=== PATIENT | female | born 1985 | race Caucasian/White ===

== ENCOUNTER 2017-03-07 10:07 | Inpatient (IN) ==
--- OUTSIDE RECORDS SUMMARY | 2017-03-07 10:15 | External Medical Summary | Continuity of Care Document ---
:1985 Author Organization [facility] Care Team Providers Name Role Phone [employer] Unavailable Unavailable Problems Problem Status Onset Classification Date Comments Source Date Reported Patient Resolved Problem 11/19/2013 Children&apo currently 0 s;s [facility]finding[facility] and Clinics Medications Medication Details Route Status Patient Ordering Order Source Instructions Provider Date hydroxyprogesterone 250 Active Children&a mg/mL, pos;s IM, [facility], and Refill(s) Clinics 0 1 tablet, Active Children&a Multivitamins with PO, pos;s Folic Acid 0.8 mg daily, [facility] oral tablet Refill(s) [facility] 0 and Clinics Vital Signs Vital Sign Value Date Comments Source Diastolic Blood 81 mm[Hg] 06/28/2013 [facility] Systolic Blood 114 mm[Hg] 06/28/2013 [facility] Temperature Celsius 36.6 [place] 06/28/2013 [facility] SpO2 96 % 06/28/2013 [facility] Respiratory Rate 16 BR/min 06/28/2013 [facility] Heart Rate 94 bpm 06/28/2013 [facility] Temperature Route Core/Temporal 06/28/2013 Children's
</ [facility] br>(06/28/19 and Clinics 14 15:36:00) <sup> </sup> Encounters Location Location Encounter Encounter Reason Attending ADM DC Status Source Details Type Number For Provider Date Date Visit [facility] Non [id number] 05/24 05/24 Active Children&a Billable /2012 pos;s [facility] CLI [id number] Genetic Josette 05/31 05/31 Active Children&a s/SW Jeffery /2013 pos;[facility] CLI [id number] PAT Torey 06/28 06/28 Active Children&a Linda /2013 pos;[facility] CLI [id number] Unknown 06/28 Active Children&a Provider pos;[facility] CLI [id number] Repeat Praveen 07/21 07/21 Active Children&a ECHO Drummond /2013 pos;[facility] Family History Value Date Source Advance Directives Order Name Results Value Date Source
--- OUTSIDE RECORDS SUMMARY | 2017-03-07 10:16 | External Medical Summary | Continuity of Care Document ---
:1985 Author Organization [facility] [employer] [facility] Address [address] [place], [place] [id number] Phone Allergies, Adverse Reactions, Alerts Substance Reaction Severity Status No Known Drug Allergies Unknown Active Medications Medication Instructions Dosage Effective Dates Status Comments (start - stop) [place] 250 mg/mL (1 inject 1 milliliter 250 MG - Active mL) intramuscular by intramuscular oil route every week begin between weeks 16 and 20; continue to week 37 of gestation or delivery Formula 28 take 1 tablet by Not Available - Active mg iron-800 mcg oral route every tablet day Problems Condition Effective Dates (start - stop) Clinical Status Suprvsn of preg w history of pre-term - labor, third trimester Suprvsn of preg w poor reprodctv or - obstet hx, third tri Supervision of other high risk - pregnancies, third trimester 29 weeks gestation of - Spotting complicating , - second trimester 16 weeks gestation of - Irregular Menses Suprvsn of preg w history of pre-term - labor, first trimester Supervision of other high risk - pregnancies, first trimester Preg care for patient w recurrent preg - loss, first trimester 9 weeks gestation of - Pap Smear Screening, Cervix - Suprvsn of preg w history of pre-term - labor, second tri Suprvsn of preg w history of pre-term - labor, second tri Supervision of other high risk - pregnancies, second trimester Suprvsn of preg w poor reprodctv or - obstet hx, second tri Fam hx of congen malform, deformations - and chromsoml abnlt Suprvsn of preg w history of pre-term - labor, second tri Suprvsn of preg w history of pre-term labor, second tri Suprvsn of preg w history of pre-term labor, second tri Suprvsn of preg w history of pre-term - labor, second tri Suprvsn of preg w history of pre-term - labor, third trimester Suprvsn of preg w history of pre-term - labor, third trimester Suprvsn of preg w history of pre-term - labor, third trimester Suprvsn of preg w poor reprodctv or - obstet hx, third tri 31 weeks gestation of - Preg care for patient w recurrent preg - loss, first trimester Hemorrhage in early , - unspecified 9 weeks gestation of - Supervision of other high risk - pregnancies, first trimester Suprvsn of preg w poor reprodctv or - obstet hx, first tri Hemorrhage in early , - unspecified 11 weeks gestation of - Supervision of other high risk - pregnancies, first trimester 11 weeks gestation of - Preg care for patient w recur preg - loss, second trimester Abnormal hematolog finding on - screening of mother 18 weeks gestation of - Fam hx of congen malform, deformations - and chromsoml abnlt Suprvsn of preg w poor reprodctv or - obstet hx, second tri Fam hx of congen malform, deformations - and chromsoml abnlt 18 weeks gestation of - 24 weeks gestation of - Fam hx of congen malform, deformations - and chromsoml abnlt Procedures Procedure Date Injection Administration Injectable Drug - Do Not Bill OB Visit No Charge Results Test Name Date and Time Measure Units Reference Range Abnormal Flag Comments Panel Description: Glucose [Mass/volume] in Serum or Plasma --1 hour post 50 g glucose PO GLUCOSE, 154 mg/dL <140 H One hour value of > GESTATIONAL SCREEN 11:05:00 lw=885 mg/dL indicatesthe (50G)-140 CUTOFF need for a diagnostic 75 g dose 2-hour or100 g dose 3-hour oral glucose tolerance test;patient fasting is required.Test performed at [email or web address] [address] [email or web address]: SID MICHAEL DO,MPH Panel Description: HEMOGLOBIN + HEMATOCRIT HEMOGLOBIN 11:05:00 11.5 g/dL 11.7-15.5 L HEMATOCRIT 11:05:00 33.9 % 35.0-45.0 L Test performed at [email or web address] [address] [address]Ybnqybje: SID MICHAEL DO,MPH Panel Description: Thyrotropin [Units/volume] in Serum or Plasma TSH 11:05:00 1.40 mIU/L N Reference Range > or=20 Years 0.40-4.50 Ranges First trimester 0.26-2.66 Second trimester 0.55-2.73 Third trimester 0.43-2.91Test performed at [email or web address] [address] [email or web address]: SID MICHAEL DO,MPH Advance Directives Directive Yes / No Effective Date File Name Unknown Encounters Encounter Practice Location Reason(s) Diagnoses Date Provider Care Team Description For Visit Members Associates Mike Garcia of preg w Sep-0 Rivera Referring In Womens history of 1-201 Aide. Provider: Health PA, pre-term labor, 7 700 Aide Rivera [address] Box [facility] , [address] 1522, trimesterSuprvsn [facility], of preg w tejal Mitchell, [place] [address] TATUM, reprodctv or 120, [place] 120, [id number], obstet hx, third Mike [place], [place] tri31 weeks RC TATUM, tel:+ gestation of [phone]. , [place]. tel: tel: [phone] Associates Mike Suprvsn of preg w Aug-2 Rivera Referring In Womens history of 5-201 Aide. Provider: Bud HUBBARD, pre-term labor, 7 700 Aide Rivera PO Box third trimester Medical K, [address], [place] [address], [facility] Dr TATUM, 120, [place] 120, , Mike [place], RC TATUM, tel: [phone]. , [place]. tel: tel: [phone] Associates Mike Suprvsn of preg w Aug-1 Rivera Referring In Womens history of 8-201 Aide. Provider: Bud HUBBARD, pre-term labor, 7 700 Aide Rivera PO Box third Medical K, 700 1522, trimesterSuprvsn [facility] [place], of preg w poor Dr, [facility] Dr TATUM, reprodctv or 120, [place] 120, , obstet hx, third Mike [place], triSupervision of RC, RC, tel: other high risk [phone] [id number]. pregnancies, , [place]. tel: third [id number] tel: [phone] weeks gestation [phone] of Associates Mike Suprvsn of preg w Aug-1 Rivera Referring In Womens history of 1-201 Aide. Provider: Bud HUBBARD, pre-term labor, 7 700 Aide Rivera PO Box third trimester Medical K, 700 1522, [place] [address], [facility] Dr TATUM, 120, Ty[place] 120, , Mike [place], RC TATUM, tel: [phone]. , [place]. tel: tel: [phone] Associates Mike Suprvsn of preg w Aug-0 Rivera Referring In Womens history of 2-201 Aide. Provider: Bud HUBBARD, pre-term labor, 7 700 Aide Rivera PO Box second tri Medical K, 700 1522, [place] [address], [facility] Dr TATUM, 120, [place] 120, , [place], [place], [facility], [place], tel: [phone]. , [place]. tel: tel: [phone] Associates Mike Nov-2 Rivera In Womens Aide. Health HAYDEE, 7 700 PO [address] Medical [address], Caitie Pinto, , [facility] RC, 120, , [place], [place], tel: [phone] , [place]. tel: [phone] [facility] Suprvsn of preg w Hild Referring In Womens history of Eve. Provider: Bud HUBBARD, pre-term labor, 7 2 E Eve Hild PO Box second tri Rajendra Smith, [address], [place], [place], [place], [place], [place], [place], [id number] [place], , , [place]. [id number]. [place] tel: tel: tel: [phone] Associates Mike Suprvsn of preg w [place] In Womens history of Festus. Health HAYDEE, pre-term labor, 7 700 PO Box second Medical 1522, triSupervision of [facility], other high risk Drive, [place], pregnancies, Suite , second 120, [place] trimesterSuprvsn Mike, tel: [place] [id number], obstet hx, second [place]. triFam hx of tel: congen malform, [id number] deformations and chromsoml abnlt Associates Mike 24 weeks Rivera In Womens Ultrasound gestation of Aide. Health HAYDEE, pregnancyFam hx 7 700 PO Box of [facility] 1522, malform, [facility], deformations and , [facility] RC, chromsoml abnlt 120, , [place], [place], tel: [phone] , [place]. tel: [phone] [facility] Suprvsn of preg w Nov-1 Hild Referring In Womens history of 4-201 Eve. Provider: Bud HUBBARD, pre-term labor, 7 [address] Eve Hild PO Box second tri Luis, Rajendra, [address], [place], Luis, [place], [place], [place], [place], [id number] [place], [id number], , [place]. [id number]. [place] tel: tel: tel: [phone] [facility] Suprvsn of preg w Nov-0 Hild Referring In Womens history of 7-201 Eve. Provider: Bud HUBBARD, pre-term labor, 7 [address] Eve Hild PO Box second tri Rajendra Smith, [address], [place], [place], [place], [place], [place], [id number] [place], [id number], , [place]. [id number]. [place] tel: tel: tel: [phone] [facility] Suprvsn of preg w [place]-2 Ana Maria Referring In Womens history of 0-201 Dorita. Provider: Bud HUBBARD, pre-term labor, 7 [address] Dorita PO Box second tri Ana Maria Smith L, 1522, [place], [address] [place], [place], [place], [id number] [place], [id number], , [place]. [place], [place] tel: [phone]. tel: [phone] tel:[phone] Associates Mike Suprvsn of preg w [place]-0 Rivera Referring In Womens poor reprodctv or 8-201 Aide. Provider: Health HAYDEE, obstet hx, second 7 700 Aide Rivrea PO Box triFam hx of Medical K, 700 1522, congen malform, [facility] Millie [facility] and [place] [address] [place] [address] TATUM, chromsoml [id number] 120, [place] 120, [id number], weeks gestation Mike [place], of RC TATUM, tel: [phone]. , [place]. tel: tel: [phone] Hong [place]ke[place] Preg care for [place]-0 Rivera In Womens Ultrasound patient w recur 8-201 Aide. Health PA, preg loss, second 7 700 PO Box trimesterAbnormal Medical 1522, hematolog finding Center [place], on Tyrel Mitchell, screening of 120, , [id number] weeks [place], gestation of [place], tel: pregnancyFam hx of congen , [place]. malform, tel: deformations and [phone] chromsoml abnlt Associates Mike Spotting May-2 Farshad In Womens complicating 3-201 Tad. 700 Health PA, , second 7 Medical PO Box weeks Center 1522, gestation of Tyrel Mitchell, 120, [place], [place], , [place], [place] tel: , [place]. tel: [phone] Hong [place] Supervision of Apr-2 Rivera In Womens other high risk 0-201 Aide. Health PA, pregnancies, 7 700 PO Box first Medical 1522, weeks gestation [facility], of Tyrel Mitchell, 120, , [place], [place], tel:901 , [place]. tel: [phone] Hong [place] Supervision of Apr-2 Rivera In Womens Ultrasound other high risk 0-201 Aide. Health PA, pregnancies, 7 700 PO Box first Medical 1522, trimesterSuprvsn Center [place], of preg w poor Tyrel Mitchell, reprodctv or 120, [id number], obstet hx, first [place], [place] triHemorrhage in [place], tel: early , [id number] , [place]. weeks gestation tel: of [phone] Hong [place] Preg care for Apr-0 Fleming In Womens patient w 6-201 Fiona. Health PA, recurrent preg 7 700 PO Box loss, first Medical 1522, trimesterHemorrha Center [place], ge in early Dr, Ty[place], , 120, [id number], unspecified9 [place], weeks gestation [place], tel: of , [place]. tel: [phone] Hong [place] Suprvsn of preg w Apr- Rivera In Womens history of 4-201 Aide. Health PA, pre-term labor, 7 700 PO Box first Medical 1522, trimesterSupervis Center [place], ion of other high , Tyrel TATUM, risk pregnancies, 120, [id number], first Mike, trimesterPreg [place], tel: care for patient w recurrent preg , [place]. loss, first tel: trimester9 weeks [phone] gestation of pregnancyPap Smear Screening, Cervix Associates Mike Irregular Menses Rivera In Womens 0-201 Aide. Health PA, 6 700 PO Box Medical 1522, [place] Dr Millie, Tyrel TATUM, 120, , [place], [place], tel:[phone] , [place]. tel: [phone] Hong [place] Nov-0 Rivera In Womens 7-201 Aide. Health PA, 3 700 PO Box Medical 1522, [place] Dr Millie, Tyrel TATUM, 120, , [facility] [place], tel:[phone] , [place]. tel: [phone] Family History Family Member Diagnosis Age At Onset No family history of Thrombosis Maternal Grandfather Diabetes mellitus No family history of Cardiovascular Disease No family history of Thyroid Disorder No family history of Ovarian Cancer No family history of Breast Cancer No family history of Uterine Cancer No family history of Stroke No family history of Hypertension No family history of Osteoporosis No family history of Colon Cancer Immunizations Vaccine Date Status Comments Tdap completed Source: New Immunization Record Payers Payer name Insurance type Covered republican ID Authorization(s) [employer] [place] [employer] Medicaid MC [id number] [employer] [place] [employer] MC [id number] Social History Type Description Quantity Date Captured Alcohol Use Details No Caffeine Use Details Unknown Tobacco Use Status Unknown Smoking Status Never smoker Vital Signs Date / Height Weight BMI Pulse Blood Temperature Respiratory Body Head BMI Time: Rate Pressure Rate Surface Circumference percentile Area 274.80 45.0 128/78 -2017 lbs 3 mm[Hg] 10:38 kg/m AM eter (2) 274.80 45.0 -2017 lbs 3 10:00 kg/m AM eter (2) 43.9 -2017 3 9:45 kg/m AM eter (2) Chief Complaint And Reason For Visit Unknown Chief Complaint And Reason For Visit Reason For Referral Reason For Referral Unknown Plan Of Care Date Type Action Status Appointment Heather Ca BOOKED Appointment Heather Ca BOOKED Appointment Heather Ca BOOKED Future Order: Radiology Order Nuchal Translucency ([id number]) Ordered Future Order: Radiology Order OB Detailed Complete Ultrasound Ordered ([id number]) Future Order: Radiology Order Ultrasound, OB Limited ([id number]) Ordered Date Type Problem Goal Intervention Status Start Date Unknown. History Of Present Illness Encounter Date Complaint History Of Present Illness This patient has no known history of present illness Functional Status Encounter Date Functional Assessment Cognitive Assessment Unknown Medications Administered Medication Instructions Dosage Effective Dates (start - stop) Status Comments Drug Treatment Unknown Instructions Date Instruction Additional Information gestational glucose lab screening HIV and other routine tests risk factors identified by history anticipated course of care nutrition and weight gain counseling, special diet toxoplasmosis precautions (cats / raw meat) sexual activity exercise indications for ultrasound influenza vaccine environmental / work hazards travel use of any medications (including supplements, vitamins, herbs, OTC drugs) domestic violence seat belt use childbirth classes / hospital facilities hospital registration genetic testing
--- OUTSIDE RECORDS SUMMARY | 2017-03-07 10:16 | External Medical Summary | Continuity of Care Document ---
:1985 Author Organization [facility] Address [address] [place], [place] [id number] Phone Allergies, Adverse Reactions, Alerts Substance Reaction Severity Status No Known Drug Allergies Unknown Active Medications Medication Instructions Dosage Effective Dates Status Comments (start - stop) [place] 250 mg/mL (1 inject 1 milliliter 250 [...] history of pre-term - labor, third trimester Spotting complicating , - second trimester 16 weeks gestation of - Irregular Menses Suprvsn of preg w history of pre-term - labor, first trimester Supervision of other high risk - pregnancies, first trimester 9 weeks gestation of - Pap Smear Screening, Cervix - Preg care for patient w recurrent preg - loss, first trimester Suprvsn of preg w history of pre-term - labor, second tri Suprvsn of preg w history of pre-term - labor, second tri Suprvsn of preg w poor reprodctv or - obstet hx, second tri Supervision of other high risk - pregnancies, second trimester Fam hx of congen malform, deformations - and chromsoml abnlt Suprvsn of preg w history of pre-term - labor, second tri Suprvsn of preg w poor reprodctv or - obstet hx, first tri 11 weeks gestation of - Supervision of other high risk - pregnancies, first trimester Hemorrhage in early , - unspecified Suprvsn of preg w poor reprodctv or - obstet hx, second tri 18 weeks gestation of - Fam hx of congen malform, deformations - and chromsoml abnlt Suprvsn of preg w history of pre-term - labor, second tri Suprvsn of preg w history of pre-term labor, second tri Suprvsn of preg w history of pre-term labor, second tri Suprvsn of preg w history of pre-term - labor, third trimester Supervision of other high risk - pregnancies, third trimester Suprvsn of preg w poor reprodctv or - obstet hx, third tri 29 weeks gestation of - Suprvsn of preg w history of pre-term - labor, third trimester Suprvsn of preg w history of pre-term - labor, third trimester Hemorrhage in early , - unspecified Preg care for patient w recurrent preg - loss, first trimester 9 weeks gestation of - Supervision of other high risk - pregnancies, first trimester 11 weeks gestation of - Preg care for patient w recur preg - loss, second trimester Abnormal hematolog finding on - screening of mother 18 weeks gestation of - Fam hx of congen malform, deformations - and chromsoml abnlt Fam hx of congen malform, deformations - and chromsoml abnlt 24 weeks gestation of - Procedures Procedure Date Injection Administration Injectable Drug - Do Not Bill Results Test Name Date and Time Measure Units Reference Range Abnormal Flag Comments Unknown Advance Directives Directive Yes / No Effective Date File Name Unknown Encounters Encounter Practice Location Reason(s) Diagnoses Date Provider Care Team Description For Visit Members [facility] Suprvsn of preg w Sep-0 Rivera Referring In Womens history of 1-201 Aide. Provider: Bud HUBBARD, pre-term labor, 7 700 Aide Rivera PO Box third trimester Medical K, [address], [place] [address], [facility] Dr TATUM, 120, Tyrel 120, [id number], Mike [place], [place], [place], tel: [phone]. , [place]. tel: tel: [phone] [facility] Suprvsn of preg w Dec-2 Rivera Referring In Womens history of 5-201 Aide. Provider: Bud HUBBARD, pre-term labor, 7 Aide Rivera PO Box third trimester Medical K, [address], [place] [address], [facility] Dr TATUM, 120, Tyrel 120, , Mike [place], [place], [place], tel:[phone]. , [place]. tel: tel: [phone] [facility] Suprpenelopen of preg w Dec- Rivera Referring In Womens history of 8-201 Aide. Provider: Bud HUBBARD, pre-term labor, 7 Aide Rivera PO Box third Medical K, 700 152, trimesterSupervis [facility] Millie, ion of other high , [facility] Dr TATUM, risk pregnancies, 120, Tyrel 120, , third Mike [place], trimesterSuprvsn [place], [place], tel: of preg w poor [phone]. reprodctv or , [place]. tel: obstet hx, third tel:53 [phone] weeks [phone] gestation of Associates [facility] Suprvsn of preg w Dec- Rivera Referring In Womens history of 1-201 Aide. Provider: Bud HUBBARD, pre-term labor, 7 700 Aide Rivera PO Box third trimester Medical K, [address], [place] [address], [facility] Dr TATUM, 120, Tyrel 120, , Mike [place], [place], tel: [phone]. , [place]. tel: tel: [phone] Hong [place] Suprvsn of preg w Dec-0 Rivera Referring In Womens history of 2-201 Aide. Provider: Health PA, pre-term labor, 7 700 Aide Rivera PO Box second [facility] Medical K, [address], [facility] Dr Millie, [facility] [place], 120, Tyrel 120, , Mike [place], [place], [place], tel: [phone]. , [place]. tel: tel: [phone] Hong [place] Rivera In Womens 7-201 Aide. Health PA, 7 700 PO Box Medical [address], [place] [address] Millie, [facility], 120, , [place], [facility], tel: [phone] , [place]. tel: [phone] Hong [facility] Nakul Suprvsn of preg w Hild Referring In Womens history of 1-201 Eve. Provider: Health HAYDEE, pre-term labor, [address] Hild PO Box second [facility] Rajendra Smith, [address], [address], [place], [place], [place], [id number] [place], , , [place]. [id number]. [place] tel: tel: tel: [phone] [facility] Suprvsn of preg w Sobbing In Womens history of 7- Festus. Health PA, pre-term labor, 7 700 PO Box second triSuprvsn Medical 1522, of preg w poor Center Millie, reprodctv or Drive, [place], obstet hx, second Suite , triSupervision of 120, [place] other high risk Mike, tel: pregnancies, [place], second [phone], trimesterFam hx [place]. of congen tel: malform, [phone] deformations and chromsoml abnlt [facility] Fam hx of congen Nov-1 Rivera In Womens Ultrasound malform, 7-201 Aide. Health PA, deformations and 7 700 PO Box chromsoml abnlt24 Medical 1522, weeks gestation Center [place], of Tyrel [place], 120, [id number], [place], [place], tel: [phone] , [place]. tel: [phone] [facility] Suprvsn of preg w Nov-1 Hild Referring In Womens history of 4-201 Eve. Provider: Health HAYDEE, pre-term labor, [address]ild PO Box second tri Rajendra Smith, [address], [place]into, [place]into, [place], [id number] [place], , , [place]. [id number]. [place] tel: tel: tel: [phone] [facility]0 Hild Referring In Womens history of 7-201 Eve. Provider: Bud HUBBARD, pre-term labor, 7 [address]ild PO Box second tri Rajendra Smith, [address], [place], [place] Pinto, [place], [id number] [place], , , [place]. [id number]. [place] tel: tel: tel: [phone] [facility] [place]-2 Ana Maria Referring In Womens history of 0-201 Dorita. Provider: Bud HUBBARD, pre-term labor, 7 [address] Dorita PO Box second tri Ana Maria Smith L, 1522, [place], [address] [place] [address], [place], [id number] [place], , , [place]. [place], [place] tel: [phone]. tel: [phone] tel: [phone] Hong [place] Suprvsn of preg w [place]-0 Rivera Referring In Womens poor reprodctv or 8-201 Aide. Provider: Health HAYDEE, obstet hx, second 7 700 Aide Rivera PO Box tri18 weeks Medical K, 700 1522, gestation of [facility], pregnancyFam hx , [facility] Dr TATUM, of congen 120, Tyrel 120, [id number], malform, [place], [place], [place] deformations and [place], [place], tel: chromsoml abnlt [phone]. , [place]. tel: tel: [phone] Hong Mckeon Preg care for Milan-0 Rivera In Womens Ultrasound patient w recur 8-201 Aide. Health PA, preg loss, second 7 700 PO Box trimesterAbnormal Medical 1522, hematolog finding [facility], on Tyrel Mitchell, screening of 120, , [id number] weeks [place], [place] gestation of [place], tel: pregnancyFam hx [phone] of [facility] , [place]. malform, tel: deformations and [phone] chromsoml abnlt Associates [facility] Spotting May-2 Farshad In Womens complicating 3-201 Tad. 700 Health PA, , second 7 Medical PO Box [email or web address] weeks [place] [address], gestation of [place]rel [place], 120, [place], [place], [id number], [place], [place] [id number] tel: , [place]. tel: [phone] Hong Mcke[place] Supervision of Apr-2 Rivera In Womens other high risk 0-201 Aide. Health HAYDEE, pregnancies, 7 700 PO Box first [id number] Medical 1522, weeks gestation [facility], of Tyrel Mitchell, 120, [id number], [place], [place], tel: [phone] , [place]. tel: [phone] Hong Mcke[place] Suprvsn of preg w Apr-2 Rivera In Womens Ultrasound poor reprodctv or 0-201 Aide. Health HAYDEE, obstet hx, first 7 700 PO Box tri11 weeks Medical 1522, gestation of [facility], pregnancySupervis Tyrel [place], ion of other high 120, [id number], risk pregnancies, [place], first [place], tel: trimesterHemorrha [phone] ge in early , [place]. , tel: unspecified [phone] Associates [facility] Hemorrhage in Aug-0 Fleming In Womens early , 6-201 Fiona. Health PA, unspecifiedPreg 7 700 PO Box care for patient Medical 1522, w recurrent preg [facility], [facility], first Tyrel Mitchell, trimester9 weeks 120, [id number], gestation of [place], [place], tel: [phone] , [place]. tel: [phone] Associates [facility] Suprvsn of preg w Aug- Rivera In Womens history of 4-201 Aide. Health PA, pre-term labor, 7 700 PO Box [facility] 1522, trimesterSupervis [place], ion of other high Tyrel Mitchell, risk pregnancies, 120, [id number], first trimester9 [place], [place] weeks gestation [place], tel: of pregnancyPap [phone] Smear Screening, , [place]. CervixPreg care tel: for patient w [phone] recurrent preg loss, first trimester Associates [facility] Irregular Menses Dec- Rivera In Womens 0-201 Aide. Health PA, 6 700 PO Box Medical [address], [place] [address] [place], 120, [id number], [place], [place], tel: [phone] , [place]. tel: [phone] Associates [facility] Nov-0 Rivera In Womens 7-201 Aide. Health PA, [address] [facility] 15[address], [place] [address] [place], 120, [id number], [place], [place], tel: [phone] , [place]. tel: [phone] Family History Family Member Diagnosis Age At [...] [employer] [place] [id number] [employer] [place] [id number] Social History Type Description Quantity Date Captured Alcohol Use Details No Caffeine Use Details Unknown Tobacco Use Status Unknown Smoking Status Never smoker Vital Signs Date / Height Weight BMI Pulse Blood Temperature Respiratory Body Head BMI Time: Rate Pressure Rate Surface Circumference percentile Area 43.9 120/78 2017 3 mm[Hg] 11:07 kg/m AM eter (2) Chief Complaint And Reason For Visit Unknown Chief Complaint And Reason For Visit Reason For Referral Reason For Referral Unknown Plan Of Care Date Type Action Status Appointment Heather Ca BOOKED Appointment Heather Ca BOOKED Appointment Heather Ca BOOKED Future Order: Radiology Order Nuchal Translucency ([id number]) Ordered Future Order: Radiology Order OB Detailed Complete Ultrasound Ordered ([id number]) Future Order: Radiology Order Ultrasound, OB Limited ([id number]) Ordered Date Type Problem Goal Intervention Status [...]
--- OUTSIDE RECORDS SUMMARY | 2017-03-07 10:16 | External Medical Summary | Continuity of Care Document ---
:1985 Author Organization [facility] Address [address] [place], [place] [id number] Phone Allergies, Adverse Reactions, Alerts Substance Reaction Severity Status No Known Drug Allergies Unknown Active Medications Medication Instructions Dosage Effective Dates Status Comments (start - stop) Justyna 250 mg/mL (1 inject 1 milliliter 250 [...] reprodctv or - obstet hx, third tri 33 weeks gestation of - Spotting complicating , - second trimester 16 weeks gestation of - Irregular Menses Suprvsn of preg w history of pre-term - labor, first trimester Supervision of other high risk - pregnancies, first trimester Preg care for patient w recurrent preg - loss, first trimester Pap Smear Screening, Cervix - 9 weeks gestation of - Suprvsn of preg [...] third trimester 29 weeks gestation of - Suprvsn of preg w history of pre-term - labor, third trimester Suprvsn of preg w history of pre-term - labor, third trimester Suprvsn of preg w poor reprodctv or - obstet hx, third tri 31 weeks gestation of - Suprvsn of preg w history of pre-term - labor, third trimester Suprvsn of preg w history of pre-term - labor, third trimester Suprvsn of preg w history of pre-term - labor, third trimester 33 weeks gestation of - Suprvsn of preg w poor reprodctv or - obstet hx, first tri Supervision of other high risk - pregnancies, first trimester Hemorrhage in early , - unspecified 11 weeks gestation of - Suprvsn of preg w poor reprodctv or - obstet hx, second tri 18 weeks gestation of - Fam hx of congen malform, deformations - and chromsoml abnlt Suprvsn of preg w poor reprodctv or - obstet hx, third tri Supervision of other high risk - pregnancies, third trimester 33 weeks gestation of - Preg care for patient w recurrent preg - loss, third trimester Suprvsn of preg w poor reprodctv or - obstet hx, third tri 35 weeks gestation of - Decreased movements, third - trimester, unsp Supervision of other high risk - pregnancies, third trimester Supervision of other high risk - pregnancies, first trimester 11 weeks gestation of - Hemorrhage in early , - unspecified Preg care for patient w recurrent preg - loss, first trimester 9 weeks gestation of - 18 weeks gestation of - Fam hx of congen malform, deformations - and chromsoml abnlt Abnormal hematolog finding on - screening of mother Preg care for patient w recur preg - loss, second trimester Fam hx of congen malform, deformations - and chromsoml abnlt 24 weeks gestation of - 35 weeks gestation of - Decreased movements, third - trimester, unsp Encounter For Screening For - Streptococcus B Supervision of other high risk - pregnancies, third trimester Procedures Procedure Date Injection Administration Injectable Drug - Do Not Bill OB Visit No Charge Results Test Name Date and Time Measure Units Reference Range Abnormal Flag Comments Unknown Advance Directives Directive Yes / No Effective Date File Name Unknown Encounters Encounter Practice Location Reason(s) Diagnoses Date Provider Care Team Description For Visit Members [facility] Suprvsn of preg w Feb- Rivera In Womens Ultrasound poor reprodctv or Aide. [facility] PA, obstet hx, third 7 700 PO Box tri35 weeks Medical 1522, gestation of [place], pregnancyDecrease Tyrel [place], d 120, [id number], movements, third Mike [place] trimester, [place], tel:[phone] unspSupervision [phone] of other high , [place]. risk pregnancies, tel:+[phone] third trimester [phone] Associates Mike 35 weeks Oct-0 Sobbing In Womens gestation of [employer] PA, pregnancyDecrease 7 700 PO Box d Medical 1522, movements, third Center [place], trimester, Drive, [place], unspEncounter For [address] [id number], 120, [place] Screening For [place], [place]: [place] [phone], other high risk [place]. pregnancies, tel: third trimester [phone] Associates [facility] Suprvsn of preg w Sep-2 Farshad Referring In Womens history of 1-201 Tad. 700 Provider: Health HAYDEE, pre-term labor, 7 Medical Tad PO Box third Center Farshad R, 1522, trimesterSuprvsn , [facility] 700 [place], of preg w poor 120, Medical [place], [facility] , [facility]x, third [place], Tryel 120, [place] tri33 weeks [id number] [place], tel: gestation of , [place]. [place], tel:[phone]. [id number] tel:[phone] Associates Mike Suprvsn of preg w Sep-2 Rivera In Womens Ultrasound poor reprodctv or 1-201 Aide. Health HAYDEE, obstet hx, third 7 700 PO Box triSupervision of Medical 1522, other high risk Center [place], pregnancies, Tyrel [place], third [id number] 120, [id number], weeks gestation [place], of pregnancyPreg [place], tel: care for patient w recurrent preg , [place]. loss, third tel: trimester [phone] Associates Mike Suprvsn of preg w Sep-1 Rivera Referring In Womens history of 5-201 Aide. Provider: Health HAYDEE, pre-term labor, 7 700 Aide Rivera PO Box third [email or web address] Medical K, 700 1522, weeks gestation Center [facility] [place], of , [facility] [place], 120, Tyrel 120, [id number], Mike [place], [place], [place], tel: [phone]. , [place]. tel: tel: [phone] Associates Mike Suprvsn of preg w Sep-1 Ana Maria Referring In Womens history of 1-201 Oly. Provider: Health HAYDEE, pre-term labor, 7 700 Aide Rivera PO Box third trimester Medical K, 700 1522, [place] [address], [facility] Dr TATUM, 120, Tyrel 120, [id number], Mike [place], RC [place], tel: [phone]. , [place]. tel: tel: [phone] Hong [place] Suprvsn of preg w Sep-0 Rivera Referring In Womens history of 1-201 Aide. Provider: Health HAYDEE, pre-term labor, 7 700 Aide Rivera PO Box third Medical , 700 1522, trimesterSuprn [facility], of preg w tejal [place], [facility] Dr TATUM, reprodctv or 120, Tyrel 120, [id number], obstet hx, third Mike [place], tri31 weeks RC TAT[place], tel: gestation of [phone]. , [place]. tel: tel: [phone] Hong [place] Suprvsn of preg w Aug-2 Rivera Referring In Womens history of 5-201 Aide. Provider: Bud HUBBARD, pre-term labor, 7 700 Aide Rivera PO Box third trimester Medical K, 700 1522, [place] [address], [facility] Dr TATUM, 120, Tyrel 120, [id number], Mike [place], RC T[place]UM, tel: [phone]. , [place]. tel: tel: [phone] Hong [place] Suprvsn of preg w Aug-1 Rivera Referring In Womens history of 8-201 Aide. Provider: Bud HUBBARD, pre-term labor, 7 700 Aide Rivera PO Box [facility] Medical , 700 1522, [facility], of preg w tejal [place], [facility] Dr TATUM, reprodctv or 120, Tyrel 120, [id number], obstet hx, third Mike [place], triSupervision of RC TATUM, tel: other high risk [phone]. pregnancies, , [place]. tel: third [email or web address] tel: [phone] weeks gestation [phone] of Associates Mike Suprvsn of preg w Dec- Rivera Referring In Womens history of 1-201 Aide. Provider: Health HAYDEE, pre-term labor, 7 700 Aide Rivera PO Box third trimester Medical K, 700 1522, [place] [address], [facility] [place], 120, Tyrel 120, , Mike [place], [place], [place], tel: [phone]. , [place]. tel: tel: [phone] Associates Mike Suprvsn of preg w Dec-0 Rivera Referring In Womens history of 2-201 Aide. Provider: Bud HUBBARD, pre-term labor, 7 700 Aide Rivera PO Box second tri Medical K, 700 1522, [place] [address], [facility] [place], 120, Tyrel 120, , Mike [place], [place], [place], tel: [phone]. , [place]. tel: tel: [phone] Associates Mike Nov- Rivera In Womens 7-201 Aide. Health HAYDEE, 7 700 PO Box Medical 1522, [place] Dr Millie, [facility] [place], 120, [id number], [place], [place], tel: [phone] , [place]. tel: [phone] Associates JULIANA Mota Suprvsn of preg w Nov-2 Hild Referring In Womens history of 1-201 Eve. Provider: Health HAYDEE, pre-term labor, 7 [address] Hild PO Box second tri Rajendra Smith, [address], [place] [address], [place], [place] Pinto, [id number] [place], , , [place]. [id number]. [place] tel: tel: tel: [phone] Associates Mike Suprvsn of preg w Nov-1 Sobbing In Womens history of 7-201 Festus. Health HAYDEE, pre-term labor, 7 700 PO Box second triSuprvsn Medical 1522, of preg w poor Center [place], reprodctv or Drive, [place], obstet hx, second Suite , triSupervision of 120, [place] other high risk [place], tel: [place], [phone] second [address], trimesterFam hx [place]. of congen tel: malform, [phone] deformations and chromsoml abnlt Associates [place] Fam hx of congen Nov-1 Rivera In Womens Ultrasound malform, 7-201 Aide. Health HAYDEE, deformations and 7 700 PO Box chromsoml [email or web address] Medical 1522, weeks gestation Center [place], of DrTyrel [place], 120, , [place], [place], tel: [phone] , [place]. tel: [phone] [facility] w Nov-1 Hild Referring In Womens history of 4-201 Eve. Provider: Bud HUBBARD, pre-term labor, 7 [address] Hild PO Box second tri Rajendra Smith, [address], [place] [address], [place], [place], [place], [place], [place], , , [place]. [id number]. [place] tel: tel: tel: [phone] [facility] Rio-0 Hild Referring In Womens history of 7-201 Eve. Provider: Bud HUBBARD, pre-term labor, 7 [address] Hild PO Box second tri Rajendra Smith, [address], [place] [address], [place], [place], [place], [id number] [place], , , [place]. [id number]. [place] tel: tel: tel: [phone] Associates [facility] Suprvsn of preg w Milan-2 Ana Maria Referring In Womens history of 0-201 Dorita. Provider: Bud HUBBARD, pre-term labor, 7 [address] Dorita PO Box second tri [place]Ana Maria L, 1522, [place], [address] [place], [place], [place], [place], [id number] [place], , , [place]. [place], tel: [phone]. tel: [phone] tel: [phone] Hong Hedrickn of preg w Milan-0 Rivera Referring In Womens poor reprodctv or 8-201 Aide. Provider: Bud HUBBARD, obstet hx, second 7 700 Aide Rivera PO Box tri18 weeks Medical K, 700 1522, gestation of [facility] [place], pregnancyAndrea lai Dr, [facility] Dr TATUM, of congen 120, Tyrel 120, [id number], malform, [place], [place], [place] deformations and [place], [place], tel: chromsoml abnlt [phone]. , [place]. tel: tel: [phone] Hong [place] 18 weeks Milan-0 Rivera In Womens Ultrasound gestation of 8-201 Aide. Bud HUBBARD, pregnancyFam hx 7 700 PO Box of [facility] Medical 1522, malform, [facility], deformations and Tyrel Mitchell, chromsoml 120, , abnltAbnormal [place], hematolog finding [place], tel: on [phone] screening of , [place]. motherPreg care tel: for patient w [phone] recur preg loss, second trimester Associates Mike Spotting May-2 Farshad In Womens complicating 3-201 Tad. 700 Health HAYDEE, , second 7 Medical PO Box [email or web address] weeks Center 1522, gestation of Tyrel [place], 120, [place], Mike, [id number], [place], [place] [id number] tel: , [place]. tel: [phone] Hong [place] Supervision of Apr-2 Rivera In Womens other high risk 0-201 Aide. Health HAYDEE, pregnancies, 7 700 PO Box first [email or web address] Medical 1522, weeks gestation [facility], of Tyrel Mitchell, 120, , [place], [place], tel: [phone] , [place]. tel: [phone] Associates Mike Suprvsn of preg w Apr-2 Rivera In Womens Ultrasound poor reprodctv or 0-201 Aide. Health HAYDEE, obstet hx, first 7 700 PO Box triSupervision of Medical 1522, other high risk Center [place], pregnancies, Tyrel [place], first 120, , trimesterHemorrha Mike, ge in early [place], tel: , [id number] , [place]. weeks gestation tel: of [phone] Associates Mike Hemorrhage in Apr-0 Fleming In Womens early , 6-201 Fiona. Health HAYDEE, unspecifiedPreg 7 700 PO Box care for patient Medical 1522, w recurrent preg [facility], loss, first Tyrel Mitchell, trimester9 weeks 120, , gestation of [place], [place], tel: [phone] , [place]. tel: [phone] Associates Mike Suprvsn of preg w Apr-0 Rivera In Womens history of 4-201 Aide. Health HAYDEE, pre-term labor, 7 700 PO Box first Medical 1522, trimesterSupervis [facility], ion of other high Tyrel Mitchell, risk pregnancies, 120, , first Mike, [place] trimesterPreg [place], tel: care for patient w recurrent preg , [place]. loss, first tel: trimesterPap [phone] Smear Screening, Cervix9 weeks gestation of Associates Mike Irregular Menses Aug- Rivera In Womens 0-201 Aide. Health HAYDEE, 6 700 PO Box Medical 1522, [place] [address] [place], 120, , [place], [place], tel:+ [phone] , [place]. tel: [phone] Associates Mike Nov-0 Rivera In Womens 7-201 Aide. Health HAYDEE, 3 700 PO Box Medical 1522, [place] [address] [place], 120, [id number], [facility] [place], tel:[phone] , . tel: [phone] Family History Family Member Diagnosis Age At [...] [employer] [place] [id number] [place] [place] Medicaid MC [id number] Social History Type Description Quantity Date Captured Alcohol Use Details No Caffeine Use Details Unknown Tobacco Use Status Unknown Smoking Status Never smoker Vital Signs Date / Height Weight BMI Pulse Blood Temperature Respiratory Body Head BMI Time: Rate Pressure Rate Surface Circumference percentile Area 285.40 46.7 lbs 7 3:50 kg/m PM eter (2) Chief Complaint And Reason For Visit Unknown Chief Complaint And Reason For Visit Reason For Referral Reason For Referral Unknown Plan Of Care Date Type Action Status Appointment Heather Ca BOOKED Future Order: Radiology Order Nuchal Translucency ([id number]) Ordered Future Order: Radiology Order Ultrasound OB Follow-up ([id number]) Ordered Future Order: Radiology Order Biophysical Profile without NST Ordered ([id number]) Future Order: Radiology Order OB Detailed Complete Ultrasound Ordered ([id number]) Future Order: Radiology Order Ultrasound, OB Limited ([id number]) Ordered Date Type Problem Goal Intervention Status [...]
--- OUTSIDE RECORDS SUMMARY | 2017-03-07 10:16 | External Medical Summary | Continuity of Care Document ---
:1985 Author Organization [facility] Address [address] [place], [place] [id number] Phone Allergies, Adverse Reactions, Alerts Substance Reaction Severity Status No Known Drug Allergies Unknown Active Medications Medication Instructions Dosage Effective Status Comments Dates (start - stop) [place] 250 mg/mL (1 inject 1 250 MG - Active mL) intramuscular milliliter by oil intramuscular route every week begin between weeks 16 and 20; continue to week 37 of gestation or delivery Formula 28 take 1 tablet by Not Available - Active mg iron-800 mcg oral route every tablet day cephalexin 500 mg take 1 capsule by 500 MG - No Longer capsule oral route 4 times Active every day for 7 days Problems Condition Effective Dates (start - stop) Clinical Status Spotting complicating , - second trimester 16 [...] congen malform, deformations - and chromsoml abnlt Supervision of other high risk - pregnancies, first trimester 11 weeks gestation of - Hemorrhage in early , - unspecified Preg care for patient w recurrent preg - loss, first trimester 9 weeks gestation of - Preg care for patient w recur preg - loss, second trimester Abnormal hematolog finding on - screening of mother 18 weeks gestation of - Fam hx of congen malform, deformations - and chromsoml abnlt Fam hx of congen malform, deformations - and chromsoml abnlt 24 weeks gestation of - Procedures Procedure Date Unknown Results Test Name Date and Time Measure Units Reference Range Abnormal Flag Comments Unknown Advance Directives Directive Yes / No Effective Date File Name Unknown Encounters Encounter Practice Location Reason(s) Diagnoses Date Provider Care Team Description For Visit Members Hong [place] Suprvsn of preg w Rivera Referring In Womens history of 1 Aide. Provider: Bud HUBBARD, pre-term labor, 7 Aide Rivera PO Box third trimester Medical K, 700 3787, [place] [address], [facility] [place], 120, [facility] 120, [id number], Mike [place], [place], [place], tel: [phone]. , [place]. tel: tel: [phone] Associates Mike Suprvsn of preg w Dec-0 Rivera Referring In Womens history of 2-201 Aide. Provider: Health PA, pre-term labor, 7 700 Aide Rivera PO Box second [facility] Medical K, 700 1522, [place] [address], [facility] [place], 120, Tyrel 120, , Mike [place], [place], [place], tel: [phone]. , [place]. tel: tel: [phone] Hong [place] Rivera In Womens 7-201 Aide. Health PA, 7 700 PO Box Medical 1522, [place] [address] Millie, [facility] [place], 120, , [place], [place], tel: [phone] , [place]. tel: [phone] Associates Peng Mota Suprvsn of preg w Hild Referring In Womens history of 1-201 Eve. Provider: Health HAYDEE, pre-term labor, 7 [address] Hild PO Box second [facility] Rajendra Smith, [address], [place] [address], [place], [place], [place], [id number] [place], , , [place]. [id number]. [place] tel: tel: tel: [phone] Associates Mike Suprvsn of preg w Sobbing In Womens history of 7- Festus. Health PA, pre-term labor, 7 700 PO Box second triSuprvsn Medical 1522, of preg w poor Center [place], reprodctv or Drive, [place], obstet hx, second Suite , triSupervision of 120, [place] other high risk [place], tel: [place], [place], second [phone], trimesterFam hx [place]. of congen tel: malform, [id number] deformations and chromsoml abnlt Associates Mike Fam hx of congen Nov-1 Rivera In Womens Ultrasound malform, 7-201 Aide. Health PA, deformations and 7 700 PO Box chromsoml [email or web address] Medical 1522, weeks gestation Center [place], of Tyrel [place], 120, [id number], [place], [place], tel:+ [phone] , [place]. tel: [phone] Associates [facility] Suprvsn of preg w Nov-1 Hild Referring In Womens history of 4-201 Eve. Provider: Health HAYDEE, pre-term labor, 7 [address] Hild PO Box second tri Rajendra Smith, [address], [place] [address], [place], [place], [place], [place], [id number] [place], , , [place]. [id number]. [place] tel: tel: tel: [phone] [facility]0 Hild Referring In Womens history of 7-201 Eve. Provider: Bud HUBBARD, pre-term labor, 7 [address] Hild PO Box second tri Rajendra Smith, [address], [place] [address], [place], [place], [place] Pinto, [id number] [place], , , [place]. [id number]. [place] tel: tel: tel: [phone] [facility] preg w Milan-2 Ana Maria Referring In Womens history of 0-201 Dorita. Provider: Bud HUBBARD, pre-term labor, 7 [address] Dorita PO Box second tri Ana Maria Smith L, 1522, [place], [address] [place], [place], [place] Smith, [id number] [place], , , [place]. [place], [place] tel: [phone]. tel: [phone] tel: [phone] Hong Beanvsn of preg w Milan-0 Rivera Referring In Womens poor reprodctv or 8-201 Aide. Provider: Health HAYDEE, obstet hx, second 7 700 Aide Rivera PO Box tri18 weeks Medical K, 700 1522, gestation of [facility] [place], pregnancyFam hx , [facility] Dr TATUM, of congen 120, Tyrel 120, [id number], malform, [place], [place], [place] deformations and [place], [place], tel: chromsoml abnlt [phone]. , [place]. tel: tel: [phone] Hong [place] Preg care for Milan-0 Rivera In Womens Ultrasound patient w recur 8-201 Aide. Health PA, preg loss, second 7 700 PO Box trimesterAbnormal Medical 1522, hematolog finding [facility], on Tyrel Mitchell, screening of 120, , [id number] weeks [place], [place] gestation of [place], tel: pregnancyFam hx [phone] of [facility] , [place]. malform, tel: deformations and [phone] chromsoml abnlt Associates Mike Spotting May-2 Farshad In Womens complicating 3-201 Tad. 700 Health PA, , second 7 Medical PO Box [id number] weeks [place] 1522, gestation of Tyrel [place], 120, [place], [place], [id number], [place], [place] [id number] tel: , [place]. tel: [phone] Hong [place] Supervision of Apr-2 Rivera In Womens other high risk 0-201 Aide. Health HAYDEE, pregnancies, 7 700 PO Box first [id number] Medical 1522, weeks gestation [facility], of Tyrel Mitchell, 120, [id number], [place], [place], tel: [phone] , [place]. tel: [phone] Hong [place] Suprvsn of preg w Apr-2 Rivera In Womens Ultrasound poor reprodctv or 0-201 Aide. Health HAYDEE, obstet hx, first 7 700 PO Box triSupervision of Medical 1522, other high risk Center [place], pregnancies, Tyrel Mitchell, first 120, , trimesterHemorrha [place], [place] ge in early [place], tel: , [id number] , [place]. weeks gestation tel: of [phone] Associates Mike Hemorrhage in Aug-0 Fleming In Womens early , 6-201 Fiona. Health PA, unspecifiedPreg 7 700 PO Box care for patient Medical 1522, w recurrent preg [facility], loss, first Tyrel Mitchell, trimester9 weeks 120, , gestation of [place], [place], tel:[phone] , [place]. tel: [phone] Associates Mike Suprvsn of preg w Aug- Rivera In Womens history of 4-201 Aide. Health PA, pre-term labor, 7 700 PO Box [facility] 1522, trimesterSupervis [place], ion of other high Tyrel Mitchell, risk pregnancies, 120, , first [place], trimesterPreg [place], tel: care for patient w recurrent preg , [place]. loss, first tel: trimester9 weeks [phone] gestation of pregnancyPap Smear Screening, Cervix Associates Mike Irregular Menses Rivera In Womens 0-201 Aide. Health HAYDEE, 6 700 PO Box Medical 1522, [place] [address] [place], 120, [id number], [place], [place], tel: [phone] , [place]. tel: [phone] Associates Mike Nov-0 Rivera In Womens 7-201 Aide. Health PA, 3 700 PO Box [facility] 1522, [place] [address] [place], 120, , [place], [place], tel: [phone] , [place]. tel: [phone] Family History Family Member Diagnosis Age At [...] Colon Cancer Immunizations Vaccine Date Status Comments Unknown Payers Payer name Insurance type Covered constitution party ID Authorization(s) [employer] [place] - Medicaid MC [id number] Social History Type Description Quantity Date Captured Unknown Vital Signs Date / Height Weight BMI Pulse Blood Temperature Respiratory Body Head BMI Time: Rate Pressure Rate Surface Circumference percentile Area Unknown Chief Complaint And Reason For Visit Unknown Chief Complaint And Reason For Visit Reason For Referral Reason For Referral Unknown Plan Of Care Date Type Action Status Appointment Heather Ca BOOKED Future Order: Radiology Order Nuchal Translucency ([id number]) Ordered Future Order: Radiology Order OB Detailed Complete Ultrasound Ordered ([id number]) Future Order: Radiology Order Ultrasound, OB Limited ([id number]) Ordered Date Type Problem Goal Intervention Status Start Date Unknown. History Of Present Illness Encounter Date Complaint History Of Present Illness This patient has no known history of present illness Functional Status Encounter Date Functional Assessment Cognitive Assessment Unknown Medications Administered Medication Instructions Dosage Effective Dates (start - stop) Status Comments Drug Treatment Unknown Instructions Date Instruction Additional Information HIV and other routine tests risk factors [...]
--- OUTSIDE RECORDS SUMMARY | 2017-03-07 10:16 | External Medical Summary | Continuity of Care Document ---
:1985 Author Organization [facility] Address [address] [place], [place] [id number] Phone Allergies, Adverse Reactions, Alerts Substance Reaction Severity Status No Known Drug Allergies Unknown Active Medications Medication Instructions Dosage Effective Dates Status Comments (start - stop) [place] 250 mg/mL (1 inject 1 milliliter 250 [...] third trimester 33 weeks gestation of - Spotting complicating , - second trimester 16 weeks gestation of - Irregular Menses Suprvsn of preg w history of pre-term - labor, first trimester Supervision of other high risk - pregnancies, first trimester Pap Smear Screening, Cervix - Preg care for patient w recurrent preg - loss, first trimester 9 weeks gestation of - Suprvsn of preg w history of pre-term - labor, second tri Suprvsn of preg w history of pre-term - labor, second tri Suprvsn of preg w poor reprodctv or - obstet hx, second tri Fam hx of congen malform, deformations - and chromsoml abnlt Supervision of other high risk - pregnancies, second trimester Suprvsn of preg w history of [...] third tri 33 weeks gestation of - Suprvsn of preg w history of pre-term - labor, third trimester Suprvsn of preg w poor reprodctv or - obstet hx, third tri 29 weeks gestation of - Supervision of other high risk - pregnancies, third trimester Suprvsn of preg w history [...] third tri 33 weeks gestation of - Supervision of other high risk - pregnancies, third trimester Preg care for patient w recurrent [...] first trimester 9 weeks gestation of - Fam hx of congen malform, deformations - and chromsoml abnlt 18 weeks gestation of - Preg care for patient w recur preg - loss, second trimester Abnormal hematolog finding on - screening of mother Fam hx of congen malform, deformations - and chromsoml abnlt 24 weeks gestation of - 35 weeks gestation of - Supervision of other high risk - pregnancies, third trimester Decreased movements, third - trimester, unsp Encounter For Screening For - Streptococcus B Procedures Procedure Date Injection Administration Injectable Drug [...] In Womens Ultrasound poor reprodctv or Aide. qualifyor PA, obstet hx, third 7 700 [address] Box tri35 weeks Medical 1522, gestation of [place] Millie pregnancyDecrease , [place], d 120, [id number], movements, third Mike, [place] trimester, [place], tel:[phone] unspSupervision [phone] of other high , [place]. risk pregnancies, tel:[phone] third trimester [phone] Associates Mike 35 weeks Oct-0 Sobbing In Womens gestation of qualifyor PA, pregnancySupervis 7 700 PO Box ion of other high Medical 1522, risk pregnancies, [facility], third Drive, [place], trimesterDecrease [id number], d 120, [place] movements, third [place], tel: trimester, [place] [address], [place]. Screening For tel: Streptococcus B [phone] Associates Mike Suprvsn of preg w Sep-2 Farshad Referring In Womens history of 1-201 Tad. 700 Provider: Health HAYDEE, pre-term labor, 7 Medical Tad PO Box third Center Farshad R, 1522, trimesterSuprvsn , [address], of preg w poor 120, Medical [place], [facility] , obstet hx, third [place], [place] 120, [place] tri33 weeks [place], tel: gestation of , [place]. [place], tel:[phone]. [phone] tel:[phone] Hong [place] Suprvsn of preg w Sep-2 Rivera In Womens Ultrasound poor reprodctv or 1-201 Aide. Health HAYDEE, obstet hx, third 7 700 PO Box tri33 weeks Medical 1522, gestation of [facility], pregnancySupervis , [facility], ion of other high 120, [id number], risk pregnancies, [place], third [place], tel: trimesterPreg care for patient , [place]. w recurrent preg tel: loss, third [phone] trimester Associates Mike Suprvsn of preg w Sep-1 Rivera Referring In Womens history of 5-201 Aide. Provider: Health HAYDEE, pre-term labor, 7 700 Aide Rivera PO Box third Medical K, 700 1522, weeks gestation Center [facility] [place], of , [facility] [place], 120, [place] 120, [id number], Mike [place], [place], [place], tel: [phone]. , [place]. tel: tel: [phone] Associates Mike Suprvsn of preg w Sep-1 Ana Maria Referring In Womens history of 1-201 Oly. Provider: Health HAYDEE, pre-term labor, 7 700 Aide Rivera PO Box third trimester Medical K, 700 1522, [place] [address], [facility] Dr TATUM, 120, [place] 120, [id number], Mike [place], [facility], [place], tel: [phone]. , [place]. tel: tel: [phone] Hong [place] Suprvsn of preg w Sep-0 Rivera Referring In Womens history of 1-201 Aide. Provider: Health HAYDEE, pre-term labor, 7 700 Aide Rivera PO Box third Medical , 700 1522, trimesterSuprvsn [facility], of preg w tejal Mitchell, [facility] Dr TATUM, reprodctv or 120, [place] 120, [id number], obstet hx, third Mike [place], tri31 weeks [place], [place], tel: gestation of [phone]. , [place]. tel: tel: [phone] Hong [place] Suprvsn of preg w Aug-2 Rivera Referring In Womens history of 5-201 Aide. Provider: Health HAYDEE, pre-term labor, 7 700 Aide Rivera PO Box third trimester Medical K, 700 1522, [place] [address], [facility] Dr [place]ATUM, 120, [place] 120, [id number], Mike [place], [place], [place], tel: [phone]. , [place]. tel: tel: [phone] Hong [place] Suprvsn of preg w Aug-1 Rivera Referring In Womens history of 8-201 Aide. Provider: Health PA, pre-term labor, 7 700 Aide Rivera PO Box third Medical , 700 1522, trimesterSuprvsn [facility], of preg w tejal Mitchell, [facility] Dr TATUM, reprodctv or 120, [place] 120, [id number], obstet hx, third Mike [place], tri29 weeks [place], tel: gestation of [phone]. pregnancySupervis , [place]. tel: ion of other high tel: [phone] risk pregnancies, [id number] third trimester Associates Mike Suprvsn of preg w Rivera Referring In Womens history of 1-201 Aide. Provider: Health HAYDEE, pre-term labor, 7 700 Aide Rivera PO Box third trimester Medical K, 700 1522, [place] [address], [facility] [place], 120, [place] 120, , Mike [place], [place], [place], tel: [phone]. , [place]. tel: tel: [phone] Associates Mike Suprvsn of preg w Dec-0 Rivera Referring In Womens history of 2-201 Aide. Provider: Bud HUBBARD, pre-term labor, 7 700 Aide Rivera PO Box second tri Medical K, 700 1522, [place] [address], [facility] [place], 120, [place] 120, , Mike [place], [place], [place], tel: [phone]. , [place]. tel: tel: [phone] Associates Mike Rivera In Womens 7-201 Aide. Health HAYDEE, 7 700 PO Box Medical 1522, [place] Dr Millie, [facility] [place], 120, [id number], [place], [place], tel: [phone] , [place]. tel: [phone] Associates JULIANA Mota Suprvsn of preg w Nov- Hild Referring In Womens history of 1-201 Eve. Provider: Health HAYDEE, pre-term labor, 7 [address] Hild PO Box second tri Rajendra Smith, [address], [place] [address], [place], [place] Pinto, [id number] [place], , , [place]. [id number]. [place] tel: tel: tel: [phone] Associates Mike Suprvsn of preg w Rio-1 Sobbing In Womens history of 7-201 Festus. Health HAYDEE, pre-term labor, 7 700 PO Box second triSuprvsn Medical 1522, of preg w poor Center [place], reprodctv or Drive, [place], obstet hx, second Suite , triFam hx of 120, [place] congen malform, [place], tel: deformations and [place], chromsoml [phone], abnltSupervision [place]. of other high tel: risk pregnancies, [phone] second trimester Associates Mike Fam hx of congen Nov-1 Rivera In Womens Ultrasound malform, 7-201 Aide. Health PA, deformations and 7 700 PO Box chromsoml [email or web address] Medical 1522, weeks gestation Center [place], of Dr[place], 120, [id number], [place], [place], tel: [phone] , [place]. tel: [phone] [facility] Nakul Beandarek of preg w Nov-1 Hild Referring In Womens history of 4-201 Eve. Provider: Bud HUBBARD, pre-term labor, 7 [address] Hild PO Box second tri Rajendra Smith, [address], [place] [address], [place], [place], [place], [place], [place], , , [place]. [id number]. [place] tel: tel: tel: [phone] [facility] [place] of preg w Nov-0 Hild Referring In Womens history of 7-201 Eve. Provider: Bud HUBBARD, pre-term labor, 7 [address] PO Box second tri Rajendra Smith, [address], [place], [place], [place], [place], [id number] [place], , , [place]. [id number]. [place] tel: tel: tel: [phone] [facility] Suprvsn of preg w [place]-2 Ana Maria Referring In Womens history of 0-201 Dorita. Provider: Bud HUBBARD, pre-term labor, 7 2 E Dorita PO Box second tri LuisAna Maria L, 1522, [place], [address] [place], [place], Luis, [place], [id number] [place], , , [place]. [place], [place] tel: [phone]. tel: [phone] tel: [phone] Hong Beanvsn of preg w Milan-0 Rivera Referring In Womens poor reprodctv or 8-201 Aide. Provider: Health HAYDEE, obstet hx, second 7 700 Aide Rivera PO Box tri18 weeks Medical K, 700 1522, gestation of [facility] [place], pregnancyFam hx , [facility] Dr TATUM, of congen 120, [place] 120, , malform, [place], [place], [place] deformations and [place], [place], tel: chromsoml abnlt [phone]. , [place]. tel: tel: [phone] Hong [place] Fam hx of congen Milan-0 Rivera In Womens Ultrasound malform, 8-201 Aide. Health HAYDEE, deformations and 7 700 PO Box chromsoml [id number] Medical 1522, weeks gestation [place], of pregnancyPreg [place], care for patient 120, [id number], w recur preg [place], [place] loss, second [place], tel: trimesterAbnormal [phone] hematolog finding , [place]. on tel: screening of [phone] mother Associates Mike Spotting May-2 Farshad In Womens complicating 3-201 Tad. 700 Health HAYDEE, , second 7 Medical PO Box [email or web address] weeks Center 1522, gestation of [place], 120, [place], [place], , [place], [place] [id number] tel: , [place]. tel: [phone] Hong [place] Supervision of Apr-2 Rivera In Womens other high risk 0-201 Aide. Health HAYDEE, pregnancies, 7 700 PO Box first [id number] Medical 1522, [facility], of [place] Mitchell, 120, [id number], [place], [place], tel: [phone] , [place]. tel: [phone] Associates Mike Suprvsn of preg w Apr-2 Rivera In Womens Ultrasound poor reprodctv or 0-201 Aide. Health HAYDEE, obstet hx, first 7 700 PO Box triSupervision of Medical 1522, other high risk Center [place], pregnancies, [place] Mitchell, first 120, [id number], trimesterHemorrha [place], ge in early [place], tel: , [phone] [email or web address] , [place]. weeks gestation tel: of [phone] Associates Mike Hemorrhage in Apr-0 Fleming In Womens early , 6-201 Fiona. Health HAYDEE, unspecifiedPreg 7 700 PO Box care for patient Medical 1522, w recurrent preg Center [place], loss, first [place] Mitchell, trimester9 weeks 120, [id number], gestation of [place], [place], tel:[phone] , [place]. tel: [phone] Associates Mike Suprvsn of preg w Apr-0 Rivera In Womens history of 4-201 Aide. Bud HUBBARD, pre-term labor, 7 700 PO Box first Medical 1522, trimesterSupervis [facility], ion of other high [place]rel Mitchell, risk pregnancies, 120, [id number], first [place], trimesterPap [place], tel: Smear Screening, CervixPreg [facility] , [place]. for patient w tel: recurrent preg [phone] loss, first trimester9 weeks gestation of Associates Mike Irregular Menses Aug- Rivera In Womens 0-201 Aide. Bud HUBBARD, 6 700 PO Box Medical 1522, [place] [address] [place], 120, [id number], [place], [place], tel: [phone] , [place]. tel: [phone] Associates Mike Nov-0 Rivera In Womens 7-201 Aide. Health HAYDEE, 3 700 PO Box Medical 1522, [place], Ty[place] Mitchell, 120, [id number], [place], [place], tel:[phone] [phone] , [place]. tel:[phone] Family History Family Member Diagnosis Age At [...] Record Payers Payer name Insurance type Covered democrat ID Authorization(s) [employer] [place] - Medicaid MC [id number] [employer] [place] Medicaid MC [id number] Social History Type Description Quantity Date Captured Alcohol Use Details No Caffeine Use Details Unknown Tobacco Use Status Unknown Smoking Status Never smoker Vital Signs Date / Height Weight BMI Pulse Blood Temperature Respiratory Body Head BMI Time: Rate Pressure Rate Surface Circumference percentile Area 283.00 46.3 132/78 lbs 7 mm[Hg] 9:08 kg/m AM eter (2) Chief Complaint And Reason For Visit Unknown Chief Complaint And Reason For Visit Reason For Referral Reason For Referral Unknown Plan Of Care Date Type Action Status Appointment Heather Ca BOOKED Appointment Heather Ca BOOKED Future Order: Radiology Order Nuchal Translucency ([id number]) Ordered Future Order: Radiology Order Ultrasound OB Follow-up ([id number]) Ordered Future Order: Radiology Order Biophysical Profile without NST Ordered ([id number]) Future Order: Radiology Order OB Detailed Complete Ultrasound Ordered ([id number]) Future Order: Radiology Order Ultrasound, OB Limited ([id number]) Ordered Date Type Problem Goal Intervention Status [...]
--- OUTSIDE RECORDS SUMMARY | 2017-03-07 10:16 | External Medical Summary | Referral Summary ---
:1985 Author Organization [facility] Address [address] [place] [address] Care Team Providers Name Role Phone Aide Rivera Primary Care Physician Encounter [facility] [id number] Date(s): 01/05/16 - 01/05/16 [facility] [address] [place] [address] [place] Discharge Diagnosis: Threatened miscarriage Discharge Disposition: 01-Home or Self Care Attending Physician: Kevin House MD Admitting Physician: Kevin House MD Vital Signs Most recent to oldest [Reference Range]: 1 Temperature Oral [35.8-37.3 degC] 36.8 degC (01/05/16 7:27 PM) Peripheral Pulse Rate [60-100 bpm] 88 bpm (01/05/16 7:27 PM) Respiratory Rate [14-20 br/min] 16 br/min (01/05/16 7:27 PM) Blood Pressure [90-140/60-90 mmHg] 144/90 mmHg *HI* (01/05/16 7:27 PM) SpO2 99 % (01/05/16 7:27 PM) Problem List No Known Problems Allergies, Adverse Reactions, Alerts No Known Allergies Medications No data available for this section Results Chemistry Most recent to oldest [Reference Range]: 1 Sodium Venous [136-144 mEq/L] 142 mEq/L (01/05/16 5:48 PM) Potassium Venous [3.6-5.1 mEq/L] 3.8 mEq/L 1 (01/05/16 5:48 PM) Calcium Ionized Venous [1.19-1.41 mmol/L] 1.22 mmol/L (01/05/16 5:48 PM) Total CO2 Venous [25-29 mEq/L] 23 mEq/L *LOW* (01/05/16 5:48 PM) HGB Venous NPT [12.0-16.0 gm/dL] 13.6 gm/dL (01/05/16 5:48 PM) HCT Venous [37.0-47.0 %] 40.0 % (01/05/16 5:48 PM) Glucose Venous [70-100 mg/dL] 99 mg/dL (01/05/16 5:48 PM) BUN Venous [4-20] 10 (01/05/16 5:48 PM) Creatinine Venous [0.4-1.0 mg/dL] 0.7 mg/dL (01/05/16 5:48 PM) Venous CL [99-109 mEq/L] 103 mEq/L (01/05/16 5:48 PM) Anion Gap, Alfonso [3-20] 16 (01/05/16 5:48 PM) Screen, Urine NPT Positive *ABN* (01/05/16 4:58 PM) Beta hCG Qnt 118 mIU/mL 2 (01/05/16 5:37 PM) 1Result Comment: This test was performed on a whole blood specimen. The presence or absence of hemolysis cannot be assessed. Hemolysis can falsely elevate potassium levels. Normals are for venous specimens only.2Result Comment: Normal Ranges for Quantitative Beta-HCG are as follows: Non- Females: 0 - 5 Gestation Wks 95% Range 0.2 - 1 4 - 50 1 - 2 50 - 500 2 - 3 100 - 5000 3 - 4 500 - 10,000 4 - 5 1,000 - 50,000 5 - 6 10,000 - 100,000 6 - 8 15,000 - 200,000 8 - 12 10,000 - 100,000Microbiology Reports TEST:Affirm Vaginitis Panel STATUS:Auth (Verified) BODY SITE: SOURCE:Cervix/Vaginal COLLECTED DATE/TIME:01/05/16 5:55 PMAffirm Vaginitis PanelNegative for Trichomonas vaginalis Negative for Gardnerella vaginalis Negative for Henna species Immunizations No data available for this section Procedures No data available for this section Social History Social History Type Response Smoking Status Never smoker Assessment and Plan No data available for this section
--- OUTSIDE RECORDS SUMMARY | 2017-03-07 10:17 | External Medical Summary | Summary of Care ---
:1985 Author Name Juana Valero M.D. Address [address], [place] [id number] Care Team Providers Name Role Phone Juana Valero M.D. Unavailable Unavailable Praveen Valero Primary Care Provider Unavailable Unavailable Unavailable Unavailable Functional Status Functional Status Health Issues Name Dates Details Functional status health issues are not documented Status: Cognitive Status Health Issues Name Dates Details Cognitive status health issues are not documented Status: Problems Name Dates Details History of Supervision of normal first (V22.0, Z34.00) Status: Resolved History of Supervision of normal (V22.1, Z34.90) Status: Resolved Right shoulder tendonitis (726.10, M75.81) Status: Active Encounter for pre-employment examination (V70.5, Z02.1) Status: Active Low back ache (724.2, M54.5) Status: Active Sciatica (724.3, M54.30) Status: Active Cough (786.2, R05) Status: Active Medications Name Dates Details Ibuprofen 600 MG Oral Tablet TAKE 1 TABLET 3 TIMES DAILY NEEDED. Quantity: 30 Refills: 0 Praveen Valero M.D. Started 03-Jan-2014 ActivePredniSONE 10 MG Oral Tablet 3 tablets x 3 days, 2 tablets x 3 days, then 1 tablet qd x 3 days. Quantity: 18 Refills: 0 Praveen Valero M.D. Started 14-Jul-2015 ActivePromethazine-Codeine 6.25-10 MG/5ML Oral Syrup Take 1 tsp every 6 hours Quantity: 240 Refills: 0 Praveen Valero M.D. Started 14-Jul-2015 Active Allergies and Adverse Reactions Name Dates Details No Known Drug Allergies Status: Active Past Medical History Name Dates Details History of Bleeding During First Trimester Status: Resolved History of Dysuria (788.1, R30.0) Status: Resolved History of Screening examination for venereal disease (V74.5, Z11.3) Status : Resolved History of Supervision of normal first (V22.0, Z34.00) Status: Resolved History of Supervision of normal (V22.1, Z34.90) Status: Resolved History of Urinary Tract Infection (V13.02) Status: Resolved Procedures Procedure Dates Details History of Treatment Of Femoral Fracture Procedures not documented Immunization Name Dates Details Immunizations not documented Family History Mother Name Dates Details No pertinent family history Status: Active Father Name Dates Details No pertinent family history Status: Active Social History Name Dates Details Smoking StatusNever smoker Vital Signs Date Test Result Details 14-Jul-2015 11:11 BP Systolic 130 mm[Hg] Status: BP Diastolic 72 mm[Hg] Status: Temperature 97.9 f Status: Weight 270 lb Status: Body Mass Index Calculated 42.29 kg/m2 Status: Body Surface Area Calculated 2.3 m2 Status: Results Date Description Value Details Results not documented Plan of Care Planned Observations Name Dates Details Planned Goals not documented Goal Instructions Instructions not documented Encounters Appointment; Praveen Valero On 14-Jul-2015 Encounter Diagnosis: Problem not documented 10:45 Appointment; Sandor Velez On 29-Jun-2014 Encounter Diagnosis: Problem not documented 10:00 Appointment; Praveen Valero On 03-Jan-2014 Encounter Diagnosis: Problem not documented 15:15
--- OUTSIDE RECORDS SUMMARY | 2017-03-07 10:17 | External Medical Summary | Continuity of Care Document ---
:1985 Author Organization [facility] Address [address] [place], [place] [id number] Phone Allergies, Adverse Reactions, Alerts Substance Reaction [...] congen malform, deformations - and chromsoml abnlt Spotting complicating , - second trimester 16 [...] weeks gestation of - Procedures Procedure Date OB Visit No Charge Results Test Name Date and Time Measure Units Reference Range Abnormal Flag Comments Unknown Advance Directives Directive Yes / No Effective Date File Name Unknown Encounters Encounter Practice Location Reason(s) Diagnoses Date Provider Care Team Description For Visit Members Hong Mckeon Suprvsn of preg w Rivera Referring In Womens history of 2-201 Aide. Provider: Health PA, pre-term labor, 7 Aide Rivera PO Box second [facility] Medical K, [address] 5[address], [place] [address], [facility] Dr TATUM, 120, Tyrel 120, [id number], Mike [place], [place], [place], tel:[phone]. [id number] , [place]. tel: tel: [phone] Hong Mckeon Rio-2 Rivera In Womens 7-201 Aide. Health PA, 7 700 PO Box Medical [address], [place] [address] [place], 120, [id number], [place], [place], tel: [phone] , [place]. tel: [phone] Associates JULIANA Mota Suprvsn of preg w Nov-2 Hild Referring In Womens history of 1-201 Eve. Provider: Bud HUBBARD, pre-term labor, 7 [address] Hild PO Box second tri Luis, A, [address], [place], [place], [place], [place], [place], [place], [place], , , [place]. [id number]. [place] tel: tel: tel: [phone] Associates Mike Suprvsn of preg w Nov-1 Sobbing In Womens history of - Festus. Health HAYDEE, pre-term labor, 7 700 PO Box second triSuprvsn Medical 1522, of preg w poor Center [place], reprodctv or Drive, [place], obstet hx, second Suite , triSupervision of 120, [place] other high risk [place], tel: pregnancies, [place], second [phone], trimesterFam hx [place]. of congen tel: malform, [id number] deformations and chromsoml abnlt Associates [place] Fam hx of congen Nov- Rivera In Womens Ultrasound malform, - Aide. Health PA, deformations and 7 700 PO Box chromsoml [email or web address] Medical 1522, weeks gestation [facility], of Tyrel Mitchell, 120, [id number], [place], [place], tel: [phone] , [place]. tel: [phone] Associates JULIANA Mota Suprvsn of preg w Nov-1 Hild Referring In Womens history of 4-201 Eve. Provider: Bud HUBBARD, pre-term labor, 7 [address]ild PO Box second tri [place], A, [address], [place], Luis, [place], [place], [place], [place], [id number] [place], , , [place]. [id number]. [place] tel: tel: tel: [phone] Associates JULIANA Mota Suprvsn of preg w Rio-0 Hild Referring In Womens history of 7-201 Eve. Provider: Bud HUBBARD, pre-term labor, 7 [address] PO Box second tri Rajendra Smith, [address], [place], Luis, [place], [place], [place], [place], [id number] [place], , , [place]. [id number]. [place] tel: tel: tel: [phone] Associates JULIANA Mota Suprvsn of preg w Milan-2 Ana Maria Referring In Womens history of 0-201 Dorita. Provider: Bud HUBBARD, pre-term labor, 7 [address] Dorita PO Box second tri Ana Maria Smith L, 1522, [place], [address] [place], [place], [place], [place], [id number] [place], , , [place]. [place], [place] tel: [phone]. tel: [phone] tel: [phone] Hong Beanvsn of preg w Milan-0 Rivera Referring In Womens poor reprodctv or 8-201 Aide. Provider: Bud HUBBARD, obstet hx, second 7 700 Aide Rivera PO Box tri18 weeks Medical K, 700 1522, gestation of [facility] [place], pregnancyFam hx Dr, [place] Center Dr TATUM, of congen 120, Tyrel 120, [id number], malform, Mike [place], [place] deformations and RC, [place], tel: chromsoml abnlt [phone]. , [place]. tel: tel: [phone] Hong Mckeon Preg care for Milan-0 Rivera In Womens Ultrasound patient w recur 8-201 Aide. Health PA, preg loss, second 7 700 PO Box trimesterAbnormal Medical 1522, hematolog finding [facility], on Tyrel Mitchell, screening of 120, [id number], [id number] weeks [place], [place] gestation of [place], tel: pregnancyFam hx [facility] [place] [place]. malform, tel: deformations and [phone] chromsoml abnlt Associates Mike Spotting May-2 Farshad In Womens complicating 3-201 Tad. 700 Health PA, , second 7 Medical PO Box [email or web address] weeks Center 1522, gestation of [place], 120, [place], [place], [id number], [place], [place] tel: , [place]. tel: [phone] Hong Mckeon Supervision of Apr-2 Rivera In Womens other high risk 0-201 Aide. Health PA, pregnancies, 7 700 PO Box first [email or web address] Medical 1522, weeks gestation Center [place], of Tyrel Mitchell, 120, , [place], [place], tel:901 , [place]. tel: [phone] Hong Mcke[place] Suprvsn of preg w Apr-2 Rivera In Womens Ultrasound poor reprodctv or 0-201 Aide. Health PA, obstet hx, first 7 700 PO Box triSupervision of Medical 1522, other high risk Center [place], pregnancies, Tyrel [place], first 120, [id number], trimesterHemorrha Jenkins, ge in early [place], tel: , [id number] , [place]. weeks gestation tel: of [phone] Associates Mike Hemorrhage in Apr-0 Fleming In Womens early , 6-201 Fiona. Health PA, unspecifiedPreg 7 700 PO Box care for patient Medical 1522, w recurrent preg Center [place], loss, first Tyrel Mitchell, trimester9 weeks 120, [id number], gestation of [place], [place], tel:[phone] , [place]. tel: [phone] Hong [place] Suprvsn of preg w Apr-0 Rivera In Womens history of 4-201 Aide. Health PA, pre-term labor, 7 700 PO [facility] Medical 1522, trimesterSupervis [facility], ion of other high , Tyrel TATUM, risk pregnancies, 120, [id number], first [place], trimesterPreg [place], tel:+ care for patient [phone] w recurrent preg , [place]. loss, first tel: trimester9 weeks [phone] gestation of pregnancyPap Smear Screening, Cervix Associates Mike Irregular Menses Rivera In Womens 0-201 Aide. [facility], 6 700 PO [facility] 15[address], [place] [address] Millie, Tyrel TATUM, 120, [id number], [place], [place], tel:[phone] , [place]. tel: [phone] Associates Mike Mar- Rivera In Womens 7-201 Aide. [facility], 3 700 PO [facility] 1522, [place] Dr Millie, Tyrel TATUM, 120, , [facility] [place], tel:[phone] , [place]. tel: [phone] Family History Family Member Diagnosis Age At [...] Unknown Payers Payer name Insurance type Covered alliance party ID Authorization(s) [employer] [place] - Medicaid MC [id number] Social History Type Description Quantity Date Captured Alcohol Use Details No Caffeine Use Details Unknown Tobacco Use Status Unknown Smoking Status Never smoker Vital Signs Date / Height Weight BMI Pulse Blood Temperature Respiratory Body Head BMI Time: Rate Pressure Rate Surface Circumference percentile Area 268.10 43.9 136/84 -2017 lbs 3 mm[Hg] 10:45 kg/m AM eter (2) 268.10 43.9 -2017 lbs 3 10:34 kg/m AM eter (2) Chief Complaint And Reason For Visit Unknown Chief Complaint And Reason For Visit Reason For Referral Reason For Referral Unknown Plan Of Care Date Type Action Status Appointment Heather Ca BOOKED Future Order: Radiology Order Nuchal Translucency ([id number]) Ordered Future Order: Radiology Order OB Detailed Complete Ultrasound Ordered ([id number]) Future Order: Radiology Order Ultrasound, OB Limited ([id number]) Ordered Date Type Problem Goal Intervention Status [...]
--- OUTSIDE RECORDS SUMMARY | 2017-03-07 10:17 | External Medical Summary | Continuity of Care Document ---
:1985 Author Organization [email or web address] Address [address] [place], [place] [id number] Phone Allergies, Adverse Reactions, Alerts Substance Reaction Severity Status No Known Drug Allergies Unknown Active Medications Medication Instructions Dosage Effective Dates Status Comments (start - stop) Gallaway 250 mg/mL (1 inject 1 milliliter 250 [...] third tri 31 weeks gestation of - Hemorrhage in early [...] chromsoml abnlt 18 weeks gestation of - Fam hx of congen malform, deformations - and chromsoml abnlt 24 weeks gestation of - Procedures Procedure Date Unknown Results Test Name Date and Time Measure Units Reference Range Abnormal Flag Comments Panel Description: GLUCOSE TOLERANCE TEST, GESTATIONAL,4SPEC(100G) GLUCOSE, FASTING 09:00:00 89 mg/dL 65-94 N GLUCOSE, 1 HOUR 09:00:00 149 mg/dL <180 N GLUCOSE, 2 HOUR 09:00:00 120 mg/dL <155 N GLUCOSE, 3 HOUR 09:00:00 62 mg/dL <140 L 09:00:00 See Below Granados/Coustan Criteria: Two or more values greater than the above reference intervals are suggestive of gestational diabetes. REPORT COMMENT:FASTING:YESTe st performed at [id number] [facility] [place] [address]Ighljrkt: SID MICHAEL DO,MPH Advance Directives Directive Yes / No Effective Date File Name Unknown Encounters Encounter Practice Location Reason(s) Diagnoses Date Provider Care Team Description For Visit Members Hong Garcia of preg w Sep-0 Rivera Referring In Womens history of 1-201 Aide. Provider: Health HAYDEE, pre-term labor, 7 700 Aide Rivera PO Box [facility] Medical , 700 1522, trimesterSuprvsn [facility] [place], of preg w poor , [facility] Dr TATUM, reprodctv or 120, Tyrel 120, [id number], obstet hx, third Mike [place], tri31 weeks RC TATUM, tel: gestation of [phone]. , [place]. tel: tel: [phone] Hnog Garcia of preg w Aug-2 Rivera Referring In Womens history of 5-201 Aide. Provider: Bud HUBBARD, pre-term labor, 7 700 Aide Rivera PO Box third [facility] Medical K, 700 1522, [place] [address], [facility] Dr TATUM, 120, Tyrel 120, [id number], Mike [place], RC TATUM, tel: [phone]. , [place]. tel: tel: [phone] Hong Mckeon Aug-2 Rivera In Womens 1-201 Aide. Health HAYDEE, 7 700 PO Box Medical 15[address], [address] [address] Millie, Ty[place], 120, [id number], [place], [place], tel: [phone] , [place]. tel: [phone] Hong Mckeon Suprvsn of preg w Aug-1 Rivera Referring In Womens history of 8-201 Aide. Provider: Health PA, pre-term labor, 7 700 Aide Rivera PO Box third Medical K, 700 1522, trimesterSupervis [place] Chelsie Pinto, ion of other high , [facility] Center Dr TATUM, risk pregnancies, 120, Tyrel 120, , third Mike [place], trimesterSuprvsn RC TATUM, tel: of preg w poor [phone]. reprodctv or , [place]. tel: obstet hx, third tel: [phone] tri29 weeks [id number] gestation of Associates Mike Suprvsn of preg w Dec-1 Rivera Referring In Womens history of 1-201 Aide. Provider: Bud HUBBARD, pre-term labor, 7 700 Aide Rivera PO Box third trimester Medical K, 700 1522, [place] [address], [facility] [place], 120, Tyrel 120, [id number], Mike [place], [place], [place], tel: [phone]. , [place]. tel: tel: [phone] Hong Mckeon Suprvsn of preg w Aug-0 Rivera Referring In Womens history of 2-201 Aide. Provider: Health HAYDEE, pre-term labor, 7 700 Aide Rivera PO Box second tri Medical K, 700 1522, [place] [address], [facility] [place], 120, Tyrel 120, [id number], Mike [place], [place], [place], tel: [phone]. , [place]. tel: tel: [phone] Hong Mckeon Rio-2 Rivera In Womens 7-201 Aide. Health HAYDEE, 7 700 PO Box Medical 1522, [address] Millie [facility] [place], 120, [id number], [place], [place], tel: [phone] , [place]. tel: [phone] Associates JULIANA Mota Suprvsn of preg w Nov-2 Hild Referring In Womens history of 1-201 Eve. Provider: Bud HUBBARD, pre-term labor, 7 [address]ild PO Box second tri Luis, A, [address], [place], Luis, [place], [place], [place], [place], [id number] [place], , , [place]. [id number]. [place] tel: tel: tel: [phone] Associates Mike Suprvsn of preg w Nov- Sobbing In Womens history of 7- Festus. Health HAYDEE, pre-term labor, 7 700 PO Box second triSuprvsn Medical 1522, of preg w poor Center [place], reprodctv or Drive, [place], obstet hx, second Suite , triSupervision of 120, [place] other high risk [place], tel: [place], [place], second [phone], trimesterFam hx [place]. of congen tel: malform, [phone] deformations and chromsoml abnlt Associates Mike Fam hx of congen Nov- Rivera In Womens Ultrasound malform, - Aide. Health HAYDEE, deformations and 7 700 PO Box chromsoml [id number] Medical 1522, weeks gestation Center [place], of Tyrel Mitchell [place], 120, [id number], [place], [place], tel: [phone] , [place]. tel: [phone] Associates JULIANA Mota Suprvsn of preg w Nov- Hild Referring In Womens history of 4-201 Eve. Provider: Bud HUBBARD, pre-term labor, 7 [address]ild PO Box second tri Luis, A, [address], [place], Luis, [place], [place], [place], [place], [id number] [place], , , [place]. [id number]. [place] tel: tel: tel: [phone] Associates [facility] Nakul Suprvsn of preg w Rio-0 Hild Referring In Womens history of 7-201 Eve. Provider: Bud HUBBARD, pre-term labor, 7 [address] PO Box second tri Rajendra Smith, [address], [place], Luis, [place], [place], [place], [place], [id number] [place], , , [place]. [id number]. [place] tel: tel: tel: [phone] [facility] Nakul Suprvsn of preg w Milan-2 Ana Maria Referring In Womens history of 0-201 Dorita. Provider: Bud HUBBARD, pre-term labor, 7 [address] Dorita PO Box second tri Luis Ana Maria L, 1522, [place], [address] [place], [place], [place], [place], [id number] [place], , , [place]. [place], tel: [phone]. tel: [phone] tel:[phone] Hong Hedrickn of preg w Milan-0 Rivera Referring In Womens poor reprodctv or - Aide. Provider: Bud HUBBARD, obstet hx, second 7 700 Aide Rivera PO Box tri18 weeks Medical K, 700 1522, gestation of [place] Chelsie Pinto, pregnancyFam hx , [facility] Dr TATUM, of congen 120, Tyrel 120, [id number], malform, [place], [place], deformations and [place], [place], tel: chromsoml abnlt [phone]. , [place]. tel: tel: [phone] Hong Mckeon Preg care for Milan-0 Rivera In Womens Ultrasound patient w recur 8- Aide. Health HAYDEE, preg loss, second 7 700 PO Box trimesterAbnormal Medical 1522, hematolog finding Center [place], on Tyrel Mitchell, screening of 120, [id number], motherFam hx of [place], [place] congen malform, [place], tel:+ deformations and [phone] chromsoml [id number] , [place]. weeks gestation tel: of [phone] Associates Mike Spotting May-2 Farshad In Womens complicating 3-201 Tad. 700 Health PA, , second 7 Medical PO Box [email or web address] weeks Center 1522, gestation of Tyrel [place], 120, [place], [place], [id number], [place], [place] [id number] tel:+ , [place]. tel: [phone] Associates Mike Supervision of Apr-2 Rivera In Womens other high risk 0-201 Aide. Health PA, pregnancies, 7 700 PO Box first [email or web address] Medical 1522, weeks gestation Center [place], of Tyrel Mitchell, 120, [id number], [place], [place], tel:901 , [place]. tel: [phone] Associates Mike Suprvsn of preg w Apr-2 Rivera In Womens Ultrasound poor reprodctv or 0-201 Aide. Health HAYDEE, obstet hx, first 7 700 PO Box triSupervision of Medical 1522, other high risk Center [place], pregnancies, Tyrel Mitchell, first 120, [id number], trimesterHemorrha [place], ge in early [place], tel:+ , [id number] , [place]. weeks gestation tel: of [phone] Associates Mike Hemorrhage in Apr-0 Fleming In Womens early , 6-201 Fiona. Health PA, unspecifiedPreg 7 700 PO Box care for patient Medical 1522, w recurrent preg Center [place], loss, first Tyrel Mitchell, trimester9 weeks 120, [id number], gestation of [place], [place], tel:[phone] , [place]. tel: [phone] Associates Mike Suprvsn of preg w Apr-0 Rivera In Womens history of 4-201 Aide. Health PA, pre-term labor, 7 700 PO Box first Medical 1522, trimesterSupervis [facility] [place], ion of other high Tyrel Mitchell, risk pregnancies, 120, [id number], first trimester9 [place], [place] weeks gestation [place], tel: of pregnancyPap [phone] Smear Screening, , [place]. CervixPreg care tel: for patient w [phone] recurrent preg loss, first trimester Associates Mike Irregular Menses Rivera In Womens 0-201 Aide. Health PA, 6 700 PO Box Medical 1522, [address] Millie, Tyrel TATUM, 120, [id number], [facility] [place], tel:[phone] , [place]. tel: [phone] Associates Mike Mar- Rivera In Womens 7-201 Aide. Health PA, 3 700 PO Box Medical 1522, [address] Millie, Tyrel TATUM, 120, [id number], [facility] [place], tel:[phone] , [place]. tel: [phone] Family History Family Member Diagnosis Age At [...] Record Payers Payer name Insurance type Covered alliance party ID Authorization(s) [employer] [place] - Medicaid MC [id number] [employer] [place] - Medicaid MC [id number] Social History Type Description Quantity Date Captured [...] BOOKED Future Order: Radiology Order Nuchal Translucency ([id number]) Ordered Future Order: Radiology Order OB Detailed Complete Ultrasound Ordered ([id number]) Future Order: Radiology Order Ultrasound, OB Limited ([id number]) Ordered Date Type Problem Goal Intervention Status [...]
--- OUTSIDE RECORDS SUMMARY | 2017-03-07 10:17 | External Medical Summary | Continuity of Care Document ---
:1985 Author Organization [facility] Address [address] [place], [place] [id number] Phone Allergies, Adverse Reactions, Alerts Substance Reaction Severity Status No Known Drug Allergies Unknown Active Medications Medication Instructions Dosage Effective Dates Status Comments (start - stop) [place] 250 mg/mL (1 inject 1 milliliter 250 [...] history of pre-term - labor, first trimester Pap Smear Screening, Cervix - Supervision of other high risk - [...] Members Hong Mckeon Suprvsn of preg w Sep-1 Ana Maria Referring In Womens history of 1-201 Oly. Provider: Bud HUBBARD, pre-term labor, 7 700 Aide Rivera PO Box third trimester Medical K, [address], [place] [address], [facility] Dr TATUM, 120, Tyrel 120, [id number], Mike Mckeon, RC, RC, tel: [phone]. , [place]. tel: tel: [phone] Hong Mckeon Suprvsn of preg w Sep-0 Rivera Referring In Womens history of 1-201 Aide. Provider: Bud HUBBARD, pre-term labor, 7 700 Aide Rivera PO Box third Medical K, 700 1522, trimesterSuprvsn [facility] Millie, of preg w poor , [facility] Dr TATUM, reprodctv or 120, Tyrel 120, [id number], obstet hx, third Mike Mckeon, tri31 weeks RC TATUM, tel: gestation of [phone]. , [place]. tel: tel: [phone] Hong Mckeon Suprvsn of preg w Aug-2 Rivera Referring In Womens history of 5-201 Aide. Provider: Bud HUBBARD, pre-term labor, 7 700 Aide Rivera PO Box third trimester Medical K, 700 1522, [place] [address], [facility] Dr TATUM, 120, Tyrel 120, [id number], Mike Mckeon, RC TATUM, tel: [phone]. , [place]. tel: tel: [phone] Hong Mckeon Suprvsn of preg w Aug-1 Rivera Referring In Womens history of 8-201 Aide. Provider: Bud HUBBARD, pre-term labor, 7 700 Aide Rivera PO Box third Medical , 700 1522, trimesterSupervis [facility] Millie, ion of other high , [facility] Dr TATUM, risk pregnancies, 120, Tyrel 120, , third Mike Mckeon, trimesterSuprvsn RC, RC, tel:2 of preg w poor [phone]. reprodctv or , [place]. tel: obstet hx, third tel: [phone] tri29 weeks [phone] gestation of Associates Mike Suprvsn of preg w Dec- Rivera Referring In Womens history of 1-201 Aide. Provider: Health HAYDEE, pre-term labor, 7 700 Aide Rivera PO Box third trimester Medical , 700 1522, [place] [address], [facility] Dr TATUM, 120, Tyrel 120, , Mike Mckeon, RC, [place], tel: [phone]. , [place]. tel: tel: [phone] Associates Mike Suprvsn of preg w Dec-0 Rivera Referring In Womens history of 2-201 Aide. Provider: Bud HUBBARD, pre-term labor, 7 700 Aide Rivera PO Box second [facility], 700 1522, [place] [address], [facility] Dr TATUM, 120, Tyrel 120, , Mike Mckeon, RC, [place], tel: [phone]. , [place]. tel: tel: [phone] Associates Mike Nov- Rivera In Womens 7-201 Aide. Health HAYDEE, 7 700 PO Box Medical 1522, [place] [address] Millie, [facility] RC, 120, , [place], [place], tel: [phone] , [place]. tel: [phone] Associates JULIANA Mota Suprvsn of preg w Hild Referring In Womens history of 1-201 Eve. Provider: Health HAYDEE, pre-term labor, 7 2 E Eve Hild PO Box second tri Rajendra Smith, [address], [place], [place], [place], [place], [place], [id number] [place], [id number], , [place]. [id number]. [place] tel: tel: tel: [phone] Associates Mike Suprvsn of preg w Rio-1 Sobbing In Womens history of 7-201 Festus. Health PA, pre-term labor, 7 700 PO Box second triSuprvsn Medical 1522, of preg w poor [facility] [place], reprodctv or Drive, [place], obstet hx, second [id number], triSupervision of 120, [place] other high risk Mike, tel: [place], [place], second [phone], trimesterFam hx [place]. of congen tel: malform, [phone] deformations and chromsoml abnlt Associates Mckeon Fam hx of congen Nov- Rivera In Womens Ultrasound malform, 7-201 Aide. Health PA, deformations and 7 700 PO Box chromsoml [email or web address] Medical 1522, weeks gestation [facility] [place], of Tyrel [place], 120, [id number], [place], [place], tel: [phone] , [place]. tel: [phone] Associates JULIANA Mota Suprpenelopen of preg w Nov-1 Hild Referring In Womens history of 4-201 Eve. Provider: Bud HUBBARD, pre-term labor, 7 [address] Hild PO Box second tri Rajendra Smith, [address], Millie, Luis, [place], [place], [place], [place], [id number] [place], [id number], , [place]. [id number]. [place] tel: tel: tel: [phone] Associates JULIANA Mota Suprvsn of preg w Rio-0 Hild Referring In Womens history of 7-201 Eve. Provider: Bud HUBBARD, pre-term labor, 7 [address] Hild PO Box second tri Rajendra Smith, [address], Millie, Luis, [place], [place], [place], [place], [id number] [place], [id number], , [place]. [id number]. [place] tel: tel: tel: [phone] Associates JULIANA Mota Suprvsn of preg w Milan-2 Ana Maria Referring In Womens history of 0-201 Dorita. Provider: Bud HUBBARD, pre-term labor, 7 [address] Dorita PO Box second tri Ana Maria Smith L, 1522, [place], [address] [place], [place], [place], [place], [id number] [place], [id number], , [place]. [place], [place] tel: [phone]. tel: [phone] tel: [phone] Hong Mckeon Suprvsn of preg w Milan-0 Rivera Referring In Womens poor reprodctv or 8-201 Aide. Provider: Bud HUBBARD, obstet hx, second 7 700 Aide Rivera PO Box tri18 weeks Medical K, 700 1522, gestation of [facility] Millie, pregnancyFam hx , [facility] Dr TATUM, of congen 120, Tyrel 120, [id number], malform, Mike, [place], [place] deformations and [place], [place], tel: chromsoml abnlt [phone]. , [place]. tel: tel: [phone] Hong Mckeon Preg care for Milan-0 Rivera In Womens Ultrasound patient w recur 8-201 Aide. Health HAYDEE, preg loss, second 7 700 PO Box trimesterAbnormal Medical 1522, hematolog finding [facility] [place], on Tyrel Mitchell, screening of 120, [id number], [id number] weeks [place], [place] gestation of [place], tel: pregnancyFam hx [phone] of [facility] , [place]. malform, tel: deformations and [phone] chromsoml abnlt Hong Mckeon Spotting May-2 Farshad In Womens complicating 3-201 Tad. 700 Health HAYDEE, , second 7 Medical PO Box [email or web address] weeks Center 1522, gestation of [place]rel [place], 120, [place], [place], [id number], [place], [place] [id number] tel: , [place]. tel: [phone] Associates Mike Supervision of Apr-2 Rivera In Womens other high risk 0-201 Aide. Health [place], pregnancies, 7 700 PO Box first [id number] Medical 1522, weeks gestation [facility], of Tyrel Mitchell, 120, [id number], [place], [place], tel:[phone] , [place]. tel: [phone] Associates Mike Suprvsn of preg w Apr-2 Rivera In Womens Ultrasound poor reprodctv or 0-201 Aide. Health PA, obstet hx, first 7 700 PO Box triSupervision of Medical 1522, other high risk Center [place], pregnancies, Tyrel Mitchell, first 120, , trimesterHemorrha [place], ge in early [place], tel: , [id number] , [place]. weeks gestation tel: of [phone] Associates Mike Hemorrhage in Apr-0 Fleming In Womens early , 6-201 Fiona. Health PA, unspecifiedPreg 7 700 PO Box care for patient Medical 1522, w recurrent preg Center [place], loss, first DrTyrel, trimester9 weeks 120, [id number], gestation of [place], [place], tel:[phone] , [place]. tel: [phone] Associates Mike Suprvsn of preg w Apr-0 Rivera In Womens history of 4-201 Aide. Health PA, pre-term labor, 7 700 PO Box first Medical 1522, trimesterPap [facility], Smear Screening, Tyrel Mitchell, CervixSupervision 120, , of other high [place], risk pregnancies, [place], tel: first trimester9 [phone] weeks gestation , [place]. of pregnancyPreg tel: care for patient [phone] w recurrent preg loss, first trimester Associates Mike Irregular Menses Aug- Rivera In Womens 0-201 Aide. Health [place], 6 700 PO Box Medical 1522, [place] [address] Millie, [place], 120, [id number], [facility] [place], tel:[phone] , [place]. tel: [phone] Hong Mckeon Nov- Rivera [facility] 7-[facility], 3 700 PO Box Medical 1522, [place] [address] Millie, [place], 120, [id number], [facility] [place], tel:[phone] , [place]. tel: [phone] Family History Family Member Diagnosis Age At [...] Record Payers Payer name Insurance type Covered constitution party ID Authorization(s) [employer] [place] Medicaid MC [id number] [employer] [place] MC [id number] Social History Type Description Quantity Date Captured [...] Status Appointment Heather Ca BOOKED Appointment Heather aC BOOKED Appointment Heather Ca BOOKED Future Order: Radiology Order Nuchal Translucency ([id number]) Ordered Future Order: Radiology Order OB Detailed Complete Ultrasound Ordered ([id number]) Future Order: Radiology Order Ultrasound, OB Limited ([id number]) Ordered Date Type Problem Goal Intervention Status [...]
--- OUTSIDE RECORDS SUMMARY | 2017-03-07 10:17 | External Medical Summary | Continuity of Care Document ---
:1987 Author Organization [facility] [employer] [facility] Address [address] [place], [place] [id number] Phone Allergies, Adverse Reactions, Alerts Substance Reaction Severity Status No Known Drug Allergies Unknown Active Medications Medication Instructions Dosage Effective Dates Status Comments (start - stop) [place] 250 mg/mL (1 inject 1 milliliter 250 [...] history of pre-term - labor, third trimester 16 weeks gestation of - Spotting complicating , - second trimester Irregular Menses Suprvsn of preg w history of pre-term - labor, first trimester Supervision of other high risk - pregnancies, first trimester Pap Smear Screening, Cervix - 9 weeks gestation of - Preg care [...] w recurrent preg - loss, third trimester Supervision of other high risk - pregnancies, first trimester 11 weeks gestation of - Hemorrhage in early , - unspecified Preg care for patient w recurrent preg - loss, first trimester 9 weeks gestation of - Fam hx of congen malform, deformations - and chromsoml abnlt Preg care for patient w recur preg - loss, second trimester Abnormal hematolog finding on - screening of mother 18 weeks gestation of - 24 weeks [...] Visit Members Hong Garcia of preg w Sep-2 Farshad Referring In Womens history of Tad. 700 Provider: Health HAYDEE, pre-term labor, 7 Medical Tad PO Box third [place]uttle Farshad R, 1522, trimesterSuprvsn , [address], of preg w poor 120, Medical CT, reprodctv or [facility] [id number], obstet hx, third CT, [place] [address], [place] tri33 weeks [place], tel: gestation of , . [place], tel:[phone]. [id number] tel:[phone] Hong Mckeon Suprpenelopen of preg w Sep-2 Rivera In Womens Ultrasound poor reprodctv or Aide. Health HAYDEE, obstet hx, third 7 700 PO Box tri33 weeks Medical 1522, gestation of [place] Solomon, pregnancySupervis , [facility], ion of other high 120, [id number], risk pregnancies, [facility], tel: trimesterPreg [phone] care for patient , [place]. w recurrent preg tel: loss, third [phone] trimester Associates Mike Hedrickn of preg w Sep-1 Rivera Referring In Womens history of 5-201 Aide. Provider: Health HAYDEE, pre-term labor, 7 700 Aide Rivera PO Box third [email or web address] Medical , 700 1522, weeks gestation [facility], of Dr, [facility] Dr TATUM, 120, Tyrel 120, [id number], Mike Mckeon, RC, RC, tel: [phone]. , [place]. tel: tel: [phone] Hong Mckeon Suprvsn of preg w Sep-1 Ana Maria Referring In Womens history of 1-201 Oly. Provider: Bud HUBBARD, pre-term labor, 7 700 Aide Rivera PO Box third trimester Medical , 700 1522, [place] [address], [facility] Dr TATUM, 120, Tyrel 120, , Mike Mckeon, RC, RC, tel:[phone]. , [place]. tel: tel: [phone] Hong Mckeon Suprvsn of preg w Sep-0 Rivera Referring In Womens history of 1-201 Aide. Provider: Health HAYDEE, pre-term labor, 7 700 Aide Rivera PO Box third Medical , 700 1522, trimesterSuprvsn [facility], of preg w poor Dr, [facility] Dr TATUM, reprodctv or 120, Tyrel 120, [id number], obstet hx, third Mike Mckeon, tri31 weeks RC TATUM, tel: gestation of [phone]. , [place]. tel: tel: [phone] Hong Mckeon Suprvsn of preg w Aug-2 Rivera Referring In Womens history of 5-201 Aide. Provider: Bud HUBBARD, pre-term labor, 7 700 Aide Rivera PO Box third trimester Medical K, 700 1522, [place] [address], [facility] Dr TATUM, 120, Tyrel 120, , Mike Mckeon, RC TATUM, tel: [phone]. , [place]. tel: tel: [phone] Hong Mckeon Suprvsn of preg w Aug-1 Rivera Referring In Womens history of 8-201 Aide. Provider: Health HAYDEE, pre-term labor, 7 700 Aide Rivera PO Box third Medical K, 700 1522, trimesterSuprvsn [facility] Solomon, of preg w poor Dr, [facility] Dr TATUM, reprodctv or 120, Tyrel 120, [id number], obstet hx, third Mike Mckeon, tri29 weeks RC, RC, tel: gestation of [phone]. pregnancySupervis , [place]. tel: ion of other high tel: [phone] risk pregnancies, [id number] third trimester Associates Mike Suprvsn of preg w Aug-1 Rivera Referring In Womens history of 1-201 Aide. Provider: Bud HUBBARD, pre-term labor, 7 700 Aide Rivera PO Box third trimester Medical K, 700 1522, [facility] Dr Millie, [facility] Dr TATUM, 120, Tyrel 120, [id number], Mike Mckeon, RC, RC, tel: [phone]. , [place]. tel: tel: [phone] Hong Mckeon Suprvsn of preg w Aug-0 Rivera Referring In Womens history of 2-201 Aide. Provider: Bud HUBBARD, pre-term labor, 7 700 Aide Rivera PO Box second [facility] Medical K, 700 1522, [place] [address], [facility] Dr TATUM, 120, Tyrel 120, [id number], Mike Mckeon, RC, RC, tel: [phone]. , [place]. tel: tel: [phone] Hong Mckeon Nov-2 Rivera In Womens 7-201 Aide. Health HAYDEE, 7 700 PO Box Medical 1522, [address] Millie, [facility] RC, 120, [id number], [facility] [place], tel: [phone] , [place]. tel: [phone] Hong Mota Suprvsn of preg w Nov-2 Hild Referring In Womens history of 1-201 Eve. Provider: Bud HUBBARD, pre-term labor, 7 [address] Eve Hild PO Box second tri Rajendra Smith, [address], Luis Pinto, RC Pinto, Solomon, RC, [place], , , [place]. [id number]. [place] tel: tel: tel: [phone] Associates Mike Suprvsn of preg w Nov-1 Sobbing In Womens history of 7-201 Festus. Bud HUBBARD, pre-term labor, 7 700 PO Box second triSuprvs Medical 1522, of preg w poor Center [place], reprodctv or Drive, [place], obstet hx, second Suite , triSupervision of 120, [place] other high risk Mike, tel: [place], [place], second [address], trimesterFam hx [place]. of [facility] tel: malform, [phone] deformations and chromsoml abnlt Associates Mike 24 weeks Nov- Rivera In Womens Ultrasound gestation of 7-201 Aide. Bud HUBBARD, pregnancyFam hx 7 700 PO Box of [facility] Medical 1522, malform, Center [place], deformations and [place], chromsoml abnlt 120, [id number], [place], [place], tel: [phone] , [place]. tel: [phone] Associates [facility] Nakul Suprvsn of preg w Nov-1 Hild Referring In Womens history of 4-201 Eve. Provider: Bud HUBBARD, pre-term labor, 7 [address] Eve Hild PO Box second tri Rajendra Smith, [address], Luis Pinto, RC Pinto, RC Pinto, [id number] [place], , , [place]. [id number]. [place] tel: tel: tel: [phone] Associates [facility] Nakul Suprvsn of preg w Rio-0 Hild Referring In Womens history of 7-201 Eve. Provider: Bud HUBBARD, pre-term labor, 7 [address] Eve Hild PO Box second tri Luis, Rajendra, [address], Solomon, Luis, Solomon, RC, [place], [place], [id number] [place], , , [place]. [id number]. [place] tel: tel: tel: [phone] Associates JULIANA Mota Suprvsn of preg w Milan-2 Ana Maria Referring In Womens history of 0-201 Dorita. Provider: Bud HUBBARD, pre-term labor, 7 [address] E Dorita PO Box second tri Ana Maria Smith L, 1522, Solomon, [address] Solomon, RC, Luis, RC, [id number] Solomon, , , [place]. [place], [place] tel: [phone]. tel: [phone] tel:[phone] Hong Mckeon Suprvsn of preg w Milan-0 Rivera Referring In Womens poor reprodctv or 8-201 Aide. Provider: Bud HUBBARD, obstet hx, second 7 700 Aide Rivera PO Box tri18 weeks Medical K, 700 1522, gestation of [facility], pregnancyFam hx , [facility] Dr TATUM, of congen 120, Tyrel 120, [id number], malform, [place], [place], [place] deformations and [place], [place], tel: chromsoml abnlt [phone]. , [place]. tel: tel: [phone] Associates Mike Fam hx of congen Milan-0 Rivera In Womens Ultrasound malform, 8-201 Aide. Health HAYDEE, deformations and 7 700 PO Box chromsoml Medical 1522, abnltPreg care [facility], for patient w Tyrel [place], recur preg loss, 120, [id number], second [place], [place] trimesterAbnormal [place], tel: hematolog finding [phone] on , [place]. screening of tel: [id number] weeks [phone] gestation of Associates Mike 16 weeks September-2 Farshad In Womens gestation of 3-201 Tad. 700 Health HAYDEE, pregnancySpotting 7 Medical PO Box complicating Center 1522, , second Tyrel Mitchell, trimester 120, [place], [place], [id number], [place], [place] [id number] tel:+ , [place]. tel: [phone] Associates Mike Supervision of Apr-2 Rivera In Womens other high risk 0-201 Aide. Health PA, pregnancies, 7 700 PO Box first [email or web address] Medical 1522, weeks gestation Center [place], of Tyrel Mitchell, 120, [id number], [place], [place], tel:[phone] , [place]. tel: [phone] Associates Mike Suprvsn of preg w Apr-2 Rivera In Womens Ultrasound poor reprodctv or 0-201 Aide. Health HAYDEE, obstet hx, first 7 700 PO Box triSupervision of Medical 1522, other high risk Center [place], pregnancies, Tyrel Mitchell, first 120, [id number], trimesterHemorrha [place], ge in early [place], tel: , [id number] , [place]. weeks gestation tel: of [phone] Associates Mike Hemorrhage in Apr-0 Fleming In Womens early , 6-201 Fiona. Health HAYDEE, unspecifiedPreg 7 700 PO Box care for patient Medical 1522, w recurrent preg Center [place], loss, first Tyrel Mitchell, trimester9 weeks 120, [id number], gestation of [place], [place], tel: [phone] , [place]. tel:[phone] Associates Mike Suprvsn of preg w Apr-0 Rivera In Womens history of 4-201 Aide. Health HAYDEE, pre-term labor, 7 700 PO Box first Medical 1522, trimesterSupervis [facility], ion of other high Tyrel Mitchell, risk pregnancies, 120, [id number], first [place], [place] trimesterPap [place], tel: Smear Screening, [phone] [address] Cervix9 weeks , [place]. gestation of tel: pregnancyPreg [phone] care for patient w recurrent preg loss, first trimester Associates Mike Irregular Menses Rivera In Womens 0-201 Aide. [facility], 6 700 PO [place] Medical 1522, [address] Millie, Ty[place], 120, [id number], [place], [place], tel: [phone] , [place]. tel: [phone] Hong [place] Mar- Rivera In Womens 7-201 Aide. [facility], 3 700 PO Box Medical 1522, Center Dr Millie, Tyrel [place], 120, [id number], [place], [place], tel: [phone] , [place]. tel: [phone] Family History Family Member Diagnosis Age At [...] Record Payers Payer name Insurance type Covered green party ID Authorization(s) [employer] [place] Medicaid MC [id number] [employer] [place] Medicaid MC [id number] Social History Type Description Quantity Date Captured [...] BOOKED Future Order: Radiology Order Nuchal Translucency ([id number]) Ordered Future Order: Radiology Order Ultrasound OB Follow-up ([id number]) Ordered Future Order: Radiology Order OB Detailed Complete Ultrasound Ordered ([id number]) Future Order: Radiology Order Ultrasound, OB Limited ([id number]) Ordered Date Type Problem Goal Intervention Status [...]
--- OUTSIDE RECORDS SUMMARY | 2017-03-07 10:17 | External Medical Summary | Referral Summary ---
:1985 Author Organization [facility] Address [address] [place] [address] Care Team Providers Name Role Phone Aide Rivera Primary Care Physician Encounter VC Date(s): 03/17/16 - 03/17/16 [facility] [address] [place] [address] [place] [phone] Discharge Diagnosis: Grade 2 ankle sprain Discharge Disposition: 01-Home or Self Care Attending Physician: Kevin Coyne MD Admitting Physician: Kevin Coyne MD Vital Signs Most recent to oldest [Reference Range]: 1 Temperature Oral [35.8-37.3 degC] 37.1 degC (03/17/16 1:45 PM) Peripheral Pulse Rate [60-100 bpm] 98 bpm (03/17/16 1:45 PM) Respiratory Rate [14-20 br/min] 18 br/min (03/17/16 1:45 PM) Blood Pressure [90-140/60-90 mmHg] 139/87 mmHg (03/17/16 1:45 PM) SpO2 99 % (03/17/16 1:45 PM) Problem List No Known Problems Allergies, Adverse Reactions, Alerts No Known Allergies Medications Naprosyn 500 mg oral tablet 500 mg 1 tabs, Oral, BID, as needed for pain, # 20 tabs, 0 Refill(s) Start Date: 03/17/16 Stop Date: 03/27/16 Status: Ordered Results No data available for this section Immunizations No data available for this section Procedures No data available for this section Social History Social History Type Response Smoking Status Never smoker Assessment and Plan No data available for this section
--- OUTSIDE RECORDS SUMMARY | 2017-03-07 10:17 | External Medical Summary | Continuity of Care Document ---
:1985 Author Organization [facility] Address [address] [place], [place] [id number] Phone Allergies, Adverse Reactions, Alerts Substance Reaction Severity Status No Known Drug Allergies Unknown Active Medications Medication Instructions Dosage Effective Dates Status Comments (start - stop) Redby 250 mg/mL (1 inject 1 milliliter 250 [...] chromsoml abnlt 18 weeks gestation of - Suprvsn of preg [...] Members Associates Mike Garcia of preg w Sep-1 Rivera Referring In Womens history of 5-201 Aide. Provider: Bud HUBBARD, pre-term labor, 7 700 Aide Rivera PO Box third [id number] Medical K, 700 1522, [facility] , [facility] Dr TATUM, 120, Tyrel 120, , Mike Mc[place]on, RC, RC, tel: [phone]. , [place]. tel: tel: [phone] Hong Garcia of preg w Sep-1 Ana Maria Referring In Womens history of 1-201 Oly. Provider: Bud HUBBARD, pre-term labor, 7 700 Aide Rivera PO Box third trimester Medical K, 700 1522, [place] [address], [facility] Dr TATUM, 120, Tyrel 120, [id number], Mike Mckeon, RC, RC, tel: [phone]. , [place]. tel: tel: [phone] Hong Garcia of preg w Sep-0 Rivera Referring In Womens history of 1-201 Aide. Provider: Bud HUBBARD, pre-term labor, 7 700 Aide Rivera PO Box third Medical K, 700 1522, trimesterSuprvsn [facility], of preg w poor , [facility] Dr TATUM, reprodctv or 120, Tyrel 120, [id number], obstet hx, third Mike Mckeon, tri31 weeks RC TATUM, tel: gestation of [phone]. , [place]. tel: tel: [phone] Hong Mckeon Dec- Rivera In Womens 8-201 Aide. Health PA, 7 700 PO Box Medical 1522, [place] Dr Millie, [facility] RC, 120, [id number], [place], [place], tel:[phone] , [place]. tel: [phone] Associates Mike Suprvsn of preg w Aug-2 Rivera Referring In Womens history of 5-201 Aide. Provider: Health HAYDEE, pre-term labor, 7 700 Aide Rivera PO Box third trimester Medical K, 700 1522, [place] [address], [facility] Dr TATUM, 120, Tyrel 120, [id number], Mike [place], RC, [place], tel:[phone]. , [place]. tel: tel: [phone] Associates Mike Suprvsn of preg w Aug-1 Rivera Referring In Womens history of 8-201 Aide. Provider: Bud HUBBARD, pre-term labor, 7 700 Aide Rivera PO Box third Medical K, 700 1522, trimesterSuprvsn [facility] Millie, of preg w poor Dr, [facility] Dr TATUM, reprodctv or 120, Tyrel 120, , obstet hx, third Mike [place], triSupervision of [place], [place], tel: other high risk [phone]. pregnancies, , [place]. tel: third [id number] tel: [phone] weeks gestation [phone] of Associates Mike Suprvsn of preg w Aug-1 Rivera Referring In Womens history of 1-201 Aide. Provider: Health HAYDEE, pre-term labor, 7 700 Aide Rivera PO Box third trimester Medical K, 700 1522, [place] [address], [facility] Dr TATUM, 120, Tyrel 120, [id number], Mike Mcke[place], RC, [place], tel:[phone]. , [place]. tel: tel: [phone] Associates Mike Suprvsn of preg w Aug-0 Rivera Referring In Womens history of 2-201 Aide. Provider: Health HAYDEE, pre-term labor, 7 700 Aide Rivera PO Box second tri Medical K, 700 1522, [facility] Dr Millie, [facility] [place], 120, Tyrel 120, [id number], Mike Mckeon, [facility], [place], tel: [phone]. , [place]. tel: tel: [phone] Associates Mike Rivera In Womens Aide. Health HAYDEE, 7 700 PO Box Medical 1522, [place], , [facility] [place], 120, , [place], [place], tel: [phone] , [place]. tel: [phone] Associates JULIANA Mota Suprvsn of preg w Hild Referring In Womens history of Eve. Provider: Health HAYDEE, pre-term labor, 7 [address] Hild PO Box second [facility] Rajendra Smith, [address], [place], Luis, [place], [place], [place], [place], [id number] [place], , , [place]. [id number]. [place] tel: tel: tel: [phone] Associates Mike Suprvsn of preg w Sobbing In Womens history of Festus. Health HAYDEE, pre-term labor, 7 700 PO Box second Medical 1522, triSupervision of [facility], other high risk [facility], [place], pregnancies, Suite , second 120, [place] trimesterSuprvsn [place], [place]: [place] [id number], obstet hx, second [place]. triFam hx of tel: congen malform, [id number] deformations and chromsoml abnlt Associates Mike Fam hx of congen Rivera In Womens Ultrasound malform, Aide. Health PA, deformations and 7 700 PO Box chromsoml [id number] Medical 1522, weeks gestation [facility], of , Tyrel TATUM, 120, [id number], [place], [place], tel: [phone] , [place]. tel: [phone] [facility] Suprvsn of preg w Nov-1 Hild Referring In Womens history of 4-201 Eve. Provider: Health HAYDEE, pre-term labor, 7 [address] Hild PO Box second tri Luis, A, [address], [place], [place], [place], [place], [place], [place], [id number] [place], , , [place]. [id number]. [place] tel: tel: tel: [phone] [facility] Suprvsn of preg w Rio-0 Hild Referring In Womens history of 7-201 Eve. Provider: Bud HUBBARD, pre-term labor, 7 [address] Hild PO Box second tri [place], A, [address], [place], Luis, [place], [place], [place], [place], [id number] [place], , , [place]. [id number]. tel: tel: tel: [phone] [facility] w Milan-2 Ana Maria Referring In Womens history of 0-201 Dorita. Provider: Bud HUBBARD, pre-term labor, 7 [address] Dorita PO Box second tri [place] Ana Maria L, 1522, [place], [address] [place], [place], [place], [place], [place], , , [place]. [place], tel: [phone]. tel: [phone] tel: [phone] Associates Mike Hedrickn of preg w Milan-0 Rivera Referring In Womens poor reprodctv or 8-201 Aide. Provider: Health HAYDEE, obstet hx, second 7 700 Aide Rivera PO Box tri18 weeks Medical K, 700 1522, gestation of [facility] Millie, pregnancyFa hx , [facility] [facility] Dr TATUM, of congen 120, Tyrel 120, , malform, Mike [place], deformations and [place], [place], tel: chromsoml abnlt [phone]. , [place]. tel: tel: [phone] Hong Mckeon Preg care for Milan-0 Rivera In Womens Ultrasound patient w recur 8-201 Aide. Health PA, preg loss, second 7 700 PO Box trimesterAbnormal Medical 1522, hematolog finding Center [place], on Tyrel Mitchell, screening of 120, , motherFam hx of [place], congen malform, [place], tel: deformations and chromsoml abnlt18 , [place]. weeks gestation tel: of [phone] Hong Mckeon Spotting May-2 Farshad In Womens complicating 3-201 Tad. 700 Health PA, , second 7 Medical PO Box [email or web address] weeks Center 1522, gestation of Tyrel Mitchell, 120, [place], [place], [id number], [place], [place] [id number] tel: , [place]. tel: [phone] Hong Mckeon Supervision of Apr-2 Rivera In Womens other high risk 0-201 Aide. Health HAYDEE, pregnancies, 7 700 PO Box first [id number] Medical 1522, weeks gestation Center [place], of Tyrel Mitchell, 120, [id number], [place], [place], tel:[phone] , [place]. tel: [phone] Hong Mckeon Suprvsn of preg w Apr-2 Rivera In Womens Ultrasound poor reprodctv or 0-201 Aide. Health HAYDEE, obstet hx, first 7 700 PO Box triSupervision of Medical 1522, other high risk Center [place], pregnancies, Tyrel Mitchell, first 120, [id number], trimesterHemorrha [place], ge in early [place], tel: , [phone] [id number] , [place]. weeks gestation tel: of [phone] Hong Mckeon Preg care for Apr-0 Fleming In Womens patient w 6-201 Fiona. Health HAYDEE, recurrent preg 7 700 PO Box loss, first Medical 1522, trimesterHemorrha [facility] in early Tyrel Mitchell, , 120, [id number], unspecified9 [place], [place] weeks gestation [place], tel: of [phone] , [place]. tel: [phone] Associates Mike Suprvsn of preg w Apr-0 Rivera In Womens history of 4-201 Aide. Health PA, pre-term labor, 7 700 PO Box first Medical 1522, trimesterSupervis [place], [facility] of other high Tyrel Mitchell, risk pregnancies, 120, [id number], first [place], [place] trimesterPap [place], tel: Smear Screening, CervixPreg care , [place]. for patient w tel: recurrent preg [phone] loss, first trimester9 weeks gestation of Associates Mike Irregular Menses Dec- Rivera In Womens 0-201 Aide. Health HAYDEE, 6 700 PO Box Medical 1522, [place] [address] [place], 120, [id number], [place], [place], tel:[phone] , [place]. tel: [phone] Associates Mike Nov-0 Rivera In Womens 7-201 Aide. Health HAYDEE, 3 700 PO Box Medical 1522, [place] [address] [place], 120, [id number], [facility] [place], tel:[phone] , [place]. tel: [phone] Family History Family Member Diagnosis Age At [...] [employer] [id number] [place] Medicaid [place] [id number] Social History Type Description Quantity Date Captured [...] BOOKED Future Order: Radiology Order Nuchal Translucency ([id number]) Ordered Future Order: Radiology Order OB Detailed Complete Ultrasound Ordered ([id number]) Future Order: Radiology Order Ultrasound, OB Limited ([id number]) Ordered Date Type Problem Goal Intervention Status [...]
--- OUTSIDE RECORDS SUMMARY | 2017-03-07 10:18 | External Medical Summary | Continuity of Care Document ---
:1985 Author Organization [facility] Address [address] [place], [place] [id number] Phone Allergies, Adverse Reactions, Alerts Substance Reaction Severity Status No Known Drug Allergies Unknown Active Medications Medication Instructions Dosage Effective Dates Status Comments (start - stop) Clements 250 mg/mL (1 inject 1 milliliter 250 [...] third tri 31 weeks gestation of - Spotting complicating , [...] first trimester 9 weeks gestation of - Hemorrhage in early , - unspecified Supervision of other high risk - pregnancies, [...] w recurrent preg - loss, third trimester 33 weeks gestation of - 24 weeks gestation of - Fam hx of congen malform, deformations - and chromsoml abnlt Procedures Procedure Date Injection Administration Injectable Drug - Do Not Bill Immuniz admnin, 1 vac, sngl/combo 19 Yrs + TDAP VACCINE >7 IM OB Visit No Charge Results Test Name Date and Time Measure Units Reference Range Abnormal Flag Comments Unknown Advance Directives Directive Yes / No Effective Date File Name Unknown Encounters Encounter Practice Location Reason(s) Diagnoses Date Provider Care Team Description For Visit Members Associates Mike Suprvsn of preg w Sep-2 Farshad Referring In Womens history of - Tad. 700 Provider: Bud HUBBARD, pre-term labor, 7 Medical [place] PO Box third trimester Center Farshad R, 1522, Dr, [address], [facility], [facility], [facility] , [place], [facility] 120, [place] [id number] Mike, tel: , [place]. [place], tel:[phone] tel:[phone] Associates Mike Suprvsn of preg w Sep-2 Rivera In Womens Ultrasound poor reprodctv or -201 Aide. Health HAYDEE, obstet hx, third 7 700 PO Box triSupervision of Medical 1522, other high risk Center [place], pregnancies, Dr, [facility], third 120, [id number], trimesterPreg Mike care for patient [place], tel:+ w recurrent preg [phone] loss, third , [place]. weeks tel: gestation of [phone] Associates Mike Suprvsn of preg w Sep-1 Rivera Referring In Womens history of 5-201 Aide. Provider: Health PA, pre-term labor, 7 700 Aide Rivera PO Box third [id number] Medical K, 700 1522, weeks gestation [facility] [place], of Dr, [facility] Dr TATUM, 120, Tyrel 120, [id number], Mike Mckeon, RC, RC, tel: [phone]. , [place]. tel: tel: [phone] Hong Mckeon Suprvsn of preg w Sep-1 Ana Maria Referring In Womens history of 1-201 Oly. Provider: Health HAYDEE, pre-term labor, 7 700 Aide Rivera PO Box third trimester Medical K, 700 1522, [place] [address], [facility] Dr TATUM, 120, Tyrel 120, [id number], Mike Mckeon, RC, RC, tel: [phone]. , [place]. tel: tel: [phone] Hong Mckeon Suprvsn of preg w Sep-0 Rivera Referring In Womens history of 1-201 Aide. Provider: Health HAYDEE, pre-term labor, 7 700 Aide Rivera PO Box third Medical K, 700 1522, trimesterSuprvsn [facility], of preg w poor Dr, [facility] Dr TATUM, reprodctv or 120, Tyrel 120, [id number], obstet hx, third Mike Mckeon, tri31 weeks RC TATUM, tel: gestation of [phone]. , [place]. tel: tel: [phone] Hong Mckeon Suprvsn of preg w Aug-2 Rivera Referring In Womens history of 5-201 Aide. Provider: Bud HUBBARD, pre-term labor, 7 700 Aide Rivera PO Box third trimester Medical K, 700 1522, [place] [address], [facility] Dr TATUM, 120, Tyrel 120, [id number], Mike Mckeon, RC TATUM, tel: [phone]. , [place]. tel: tel: [phone] Hong Mckeon Suprvsn of preg w Dec-1 Rivera Referring In Womens history of 8-201 Aide. Provider: Health HAYDEE, pre-term labor, 7 700 Aide Rivera PO Box third Medical K, 700 1522, trimesterSupervis [place] [address]sie [address]into, ion of other high , [facility] Dr TATUM, risk pregnancies, 120, Tyrel 120, [id number], third Mike Mckeon, trimesterSuprvsn RC TATUM, tel: of preg w poor [phone]. reprodctv or , [place]. tel: obstet hx, third tel: [phone] tri29 weeks [phone] gestation of Associates Mike Suprvsn of preg w Dec- Rivera Referring In Womens history of 1-201 Aide. Provider: Bud HUBBARD, pre-term labor, 7 700 Aide Rivera PO Box third trimester Medical K, 700 1522, [place] [address], [facility] [place], 120, Tyrel 120, , Mike Mckeon, RC, RC, tel: [phone]. , [place]. tel: tel: [phone] Hong Mckeon Suprvsn of preg w Dec-0 Rivera Referring In Womens history of 2-201 Aide. Provider: Bud HUBBARD, pre-term labor, 7 700 Aide Rivera PO Box second [facility] Medical K, 700 1522, [place] [address], [facility] Dr TATUM, 120, Tyrel 120, , Mike Mckeon, RC TATUM, tel: [phone]. , [place]. tel: tel: [phone] oHng Mckeon Nov- Rivera In Womens 7-201 Aide. Bud HUBBARD, 7 700 PO Box Medical 1522, [place] Dr Millie, [facility] [place], 120, [id number], [place] RC Mc[place]on, tel: [phone] , [place]. tel: [phone] Associates JULIANA Mota Suprvsn of preg w Nov-2 Hild Referring In Womens history of 1-201 Eve. Provider: Bud HUBBARD, pre-term labor, 7 [address] Hild PO Box second tri Rajendra Smith, [address], [place] [address], [place], [place], [place], [place], [id number] [place], , , [place]. [id number]. [place] tel: tel: tel: [phone] Associates Mike Suprvsn of preg w Nov-1 Sobbing In Womens history of 7-201 Festus. Bud HUBBARD, pre-term labor, 7 700 PO Box second Medical 1522, triSupervision of [facility], other high risk Drive, [place], pregnancies, Suite , second 120, [place] trimesterSuprvsn [place], tel: [place] [id number], obstet hx, second [place]. triFam hx of tel: congen malform, [id number] deformations and chromsoml abnlt Associates Mike 24 weeks Nov- Rivera In Womens Ultrasound gestation of 7-201 Aide. Bud HUBBARD, pregnancyFam hx 7 700 PO Box of [facility] Medical 1522, malform, [facility], deformations and Tyrel Mitchell [place], chromsoml abnlt 120, [id number], [place], [place], tel: [phone] , [place]. tel: [phone] Associates JULIANA Mota Suprpenelopen of preg w Nov-1 Hild Referring In Womens history of 4-201 Eve. Provider: Bud HUBBARD, pre-term labor, 7 [address] Hild PO Box second tri Rajendra Smith, [address], [place] [address], [place], [place], [place], [place], [id number] [place], , , [place]. [id number]. [place] tel: tel: tel: [phone] Associates JULIANA Mota Suprvsn of preg w Rio-0 Hild Referring In Womens history of 7-201 Eve. Provider: Bud HUBBARD, pre-term labor, 7 [address] [place] PO Box second tri Luis, A, [address], [place], Luis, [place], [place], [place], [place], [id number] [place], , , [place]. [id number]. [place] tel: tel: tel: [phone] Associates JULIANA Mota Suprvsn of preg w Milan-2 Ana Maria Referring In Womens history of 0-201 Dorita. Provider: Bud HUBBARD, pre-term labor, 7 [address] Dorita PO Box second tri Ana Maria Smith L, 1522, [place], [address] [place], [place], [place], [place], [id number] [place], , , [place]. [place], [place] tel: [phone]. tel: [phone] tel: [phone] Hong Mckeon Suprvsn of preg w Milan-0 Rivera Referring In Womens poor reprodctv or 8-201 Aide. Provider: Bud HUBBARD, obstet hx, second 7 700 Aide Rivera PO Box triFam hx of Medical K, 700 1522, congen malform, [facility] [place], rosalinda and Tyrel Mitchell [place] Dr TATUM, chromsoml abnlt18 120, Tyrel 120, [id number], weeks gestation Mike Mckeon, of RC, RC, tel: [phone]. , [place]. tel: tel: [phone] Hong Rapp care for Milan-0 Rivera In Womens Ultrasound patient w recur 8-201 Aide. Health HAYDEE, preg loss, second 7 700 PO Box trimesterAbnormal Medical 1522, hematolog finding Center [place] on Tyrel Mitchell, screening of 120, , motherFam hx of [facility] congen malform, [place], tel: deformations and [phone] chromsoml abnlt18 , [place]. weeks gestation tel: of [phone] Hong Mckeon Spotting May-2 Farshad In Womens complicating 3-201 Tad. 700 Health PA, , second 7 Medical PO Box [id number] weeks Center 1522, gestation of Tyrel Mitchell, 120, [place], [place], [id number], [place], [place] [id number] tel:+ , [place]. tel: [phone] Associates Mike Supervision of Apr-2 Rivera In Womens other high risk 0-201 Aide. Health PA, pregnancies, 7 700 PO Box first [id number] Medical 1522, weeks gestation Center [place], of Tyrel Mitchell, 120, [id number], [place], [place], tel: [phone] , [place]. tel: [phone] Associates Mike Hemorrhage in Apr-2 Rivera In Womens Ultrasound early , 0-201 Aide. Health PA, unspecifiedSuperv 7 700 PO Box ision of other Medical 1522, high risk Center [place], pregnancies, Tyrel Mitchell, first 120, , trimesterSuprvsn [place] Mike of preg w poor [place], tel: reprodctv or obstet hx, first , [place]. tri11 weeks tel: gestation of [phone] Associates Mike Hemorrhage in Apr-0 Fleming In Womens early , 6-201 Fiona. Health PA, unspecifiedPreg 7 700 PO Box care for patient Medical 1522, w recurrent preg Center [place], loss, first Tyrel Mitchell, trimester9 weeks 120, , gestation of [place], [place], tel: [phone] , [place]. tel: [phone] Associates Mike Suprvsn of preg w Apr-0 Rivera In Womens history of 4-201 Aide. Health PA, pre-term labor, 7 700 PO Box first Medical 1522, trimesterSupervis [facility], ion of other high Tyrel Mitchell, risk pregnancies, 120, [id number], first [place], [place] trimesterPreg [place], tel: care for patient w recurrent preg , [place]. loss, first tel: trimesterPap [phone] Smear Screening, Cervix9 weeks gestation of Associates Mike Irregular Menses Rivera In Womens 0-201 Aide. [facility], 6 700 PO [facility] 1522, [place] [address] Millie, [facility] [place], 120, [id number], [facility] [place], tel:[phone] , [place]. tel: [phone] Hong [place]ke[place] Rivera In Womens 7-201 Aide. [facility], 3 700 PO Box Medical 1522, [place] Dr Millie, [facility] [place], 120, [id number], [facility] [place], tel:+ [phone] , [place]. tel: [phone] Family History Family Member Diagnosis Age At [...] [employer] MC [id number] [place] MC [id number] Social History Type Description Quantity Date Captured Alcohol Use Details No Caffeine Use Details Unknown Tobacco Use Status Unknown Smoking Status Never smoker Vital Signs Date / Height Weight BMI Pulse Blood Temperature Respiratory Body Head BMI Time: Rate Pressure Rate Surface Circumference percentile Area 45.0 -2016 3 8:54 kg/m AM eter (2) 280.20 45.9 -2017 lbs 1 8:57 kg/m AM eter (2) 280.20 45.9 126/82 -2017 lbs 1 mm[Hg] 9:26 kg/m AM eter (2) Chief Complaint And Reason For Visit Unknown Chief Complaint And Reason For Visit Reason For Referral Reason For Referral Unknown Plan Of Care Date Type Action Status Appointment Heather Ca BOOKED Future Order: Radiology Order Nuchal Translucency ([id number]) Ordered Future Order: Radiology Order OB Detailed Complete Ultrasound Ordered ([id number]) Future Order: Radiology Order Ultrasound OB Follow-up ([id number]) Ordered Future Order: Radiology Order Ultrasound, OB Limited ([id number]) Ordered Date Type Problem Goal Intervention Status [...]
--- OUTSIDE RECORDS SUMMARY | 2017-03-07 10:18 | External Medical Summary | Continuity of Care Document ---
:1985 Author Organization [facility] Address [address] [place], [place] [phone] Phone Allergies, Adverse Reactions, Alerts Substance Reaction [...] Effective Dates (start - stop) Clinical Status Supervision of other high risk - pregnancies, third trimester Suprvsn of preg w poor reprodctv or - obstet hx, third tri Preg care for patient w recurrent preg [...] - pregnancies, third trimester Procedures Procedure Date Ultrasnd preg uterus, flwup/repeat Results Test Name Date and Time Measure Units Reference Range Abnormal Flag Comments Unknown Advance Directives Directive Yes / No Effective Date File Name Unknown Encounters Encounter Practice Location Reason(s) Diagnoses Date Provider Care Team Description For Visit Members Associates Mike Suprvsn of preg w Feb- Rivera In Womens Ultrasound poor reprodctv or Aide. Health PA, obstet hx, third 7 700 PO Box tri35 weeks Medical 1522, gestation of [facility], pregnancyDecrease Tyrel Mitchell, d 120, [id number], movements, third Mike [place] trimester, [place], tel:[phone] unspSupervision [phone] of other high , [place]. risk pregnancies, tel:[phone] third trimester [phone] Associates Mike 35 weeks Oct-0 Sobbing In Womens gestation of Festus. Health PA, pregnancyDecrease 7 700 PO Box d Medical 1522, movements, third [facility] [place], trimester, Drive, [place], unspEncounter For Suite , 120, [place] Screening For [place], [place]: [place] [id number], other high risk [place]. pregnancies, tel: third trimester [phone] Associates Mike Suprpenelopen of preg w Sep-2 Farshad Referring In Womens history of 1-201 Tad. 700 Provider: Health HAYDEE, pre-term labor, 7 Medical Tad PO Box third [place] Farshad R, 1522, trimesterSuprvsn , [address], of preg w poor 120, Medical [place], reprodctv or [place], [place] [id number], obstet hx, third [place], Tyrel 120, [place] tri33 weeks [id number] [place], tel: gestation of , [place]. [place], tel:[phone]. [phone] tel:[phone] Associates Mike Supervision of Sep-2 Rivera In Womens Ultrasound other high risk 1-201 Aide. Health PA, pregnancies, 7 700 PO Box [facility] Medical 1522, trimesterSuprvsn [facility], of preg w poor , [facility], reprodctv or 120, [id number], obstet hx, third [place], triPreg care for [place], tel: patient w recurrent preg , [place]. loss, third tel: [id number] weeks [id number] gestation of Associates Mike Suprpenelopen of preg w Sep-1 Rivera Referring In Womens history of 5-201 Aide. Provider: Health HAYDEE, pre-term labor, 7 700 Aide Rivera PO Box third [id number] Medical K, 700 1522, weeks gestation [facility] [place], of , [facility] Dr TATUM, 120, Tyrel 120, [id number], Mike [place], [place], [place], tel:[phone]. , [place]. tel: tel: [phone] Associates Mike Suprvsn of preg w Sep-1 Ana Maria Referring In Womens history of 1-201 Oly. Provider: Health HAYDEE, pre-term labor, 7 700 Aide Rivera PO Box third trimester Medical K, 700 1522, [place] [address], [facility] Dr TATUM, 120, Tyrel 120, [id number], Mike [place], [place] TATUM, tel: [phone]. , [place]. tel: tel: [phone] Hong [place] Suprvsn of preg w Sep-0 Rivera Referring In Womens history of 1-201 Aide. Provider: Health PA, pre-term labor, 7 700 Aide Rivera PO Box third Medical , 700 1522, [facility], of preg w tejal Mitchell, [facility] Dr TATUM, reprodctv or 120, Tyrel 120, [id number], obstet hx, third Mike [place], tri31 weeks RC TATUM, tel: gestation of [phone]. , [place]. tel: tel: [phone] Hong [place] Suprvsn of preg w Aug-2 Rivera Referring In Womens history of 5-201 Aide. Provider: Health HAYDEE, pre-term labor, 7 700 Aide Rivera PO Box third trimester Medical K, 700 1522, [place] [address], [facility] Dr TATUM, 120, Tyrel 120, [id number], Mike [place], [place] TATUM, tel: [phone]. , [place]. tel: tel: [phone] Hong [place] Suprvsn of preg w Aug-1 Rivera Referring In Womens history of 8-201 Aide. Provider: Health PA, pre-term labor, 7 700 Aide Rivera PO Box [facility], 700 1522, [facility] of [facility] w tejal Mitchell, [facility] Dr TATUM, reprodctv or 120, Tyrel 120, [id number], obstet hx, third Mike [place], triSupervision of RC TATUM, tel: other high risk [phone]. pregnancies, , [place]. tel: third [id number] tel: [phone] weeks gestation [phone] of Associates Mike Suprvsn of preg w Rivera Referring In Womens history of 1-201 Aide. Provider: Bud HUBBARD, pre-term labor, 7 700 Aide Rivera PO Box third trimester Medical K, 700 1522, [place] [address], [facility] [place], 120, Tyrel 120, , Mike [place], [place], [place], tel: [phone]. , [place]. tel: tel: [phone] Associates Mike Suprvsn of preg w Dec-0 Rivera Referring In Womens history of 2-201 Aide. Provider: Bud HUBBARD, pre-term labor, 7 700 Aide Rivera PO Box second [facility] Medical K, 700 1522, [place] [address], [facility] [place], 120, Tyrel 120, , Mike [place], [place], [place], tel: [phone]. , [place]. tel: tel: [phone] Associates Mike Rivera In Womens 7- Aide. Bud HUBBARD, 7 700 PO Box Medical 1522, [place] Dr Millie, [facility] [place], 120, [id number], [place], [facility], tel: [phone] , [place]. tel: [phone] Associates JULIANA Mota Suprvsn of preg w Hild Referring In Womens history of 1-201 Eve. Provider: Bud HUBBARD, pre-term labor, 7 [address] Hild PO Box second tri Rajendra Smith, [address], [place] [address], [place], [place], [id number] [place], , , [place]. [id number]. [place] tel: tel: tel: [phone] Associates Mike Suprvsn of preg w Nov- Sobbing In Womens history of 7- Festus. Health HAYDEE, pre-term labor, 7 700 PO Box second triSuprvsn Medical 1522, of preg w poor [facility] [place], reprodctv or Drive, [place], obstet hx, second Suite , triSupervision of 120, [place] other high risk [place], [place]: [place], [place], second [address], trimesterFam hx [place]. of congen tel: malform, [id number] deformations and chromsoml abnlt Associates [place] Fam hx of congen Nov-1 Rivera In Womens Ultrasound malform, 7-201 Aide. Health HAYDEE, deformations and 7 700 PO Box chromsoml [id number] Medical 1522, weeks gestation [facility] [place], of DrTyrel [place], 120, [id number], [place], [place], tel: [phone] , [place]. tel: [phone] Associates [facility] Suprvsn of preg w Rio-1 Hild Referring In Womens history of 4-201 Eve. Provider: Bud HUBBARD, pre-term labor, 7 [address]ild PO Box second tri Rajendra Smith, [address], [place], Luis, [place], [place], [place], [place], [id number] [place], , , [place]. [id number]. [place] tel: tel: tel: [phone] Associates [facility] Suprvsn of preg w Rio-0 Hild Referring In Womens history of 7-201 Eve. Provider: Bud HUBBARD, pre-term labor, 7 [address] Hild PO Box second tri Luis A, [address], [place], [place], [place], [place], [place], [place], [id number] [place], , , [place]. [id number]. [place] tel: tel: tel: [phone] Associates [facility] Suprvsn of preg w Milan-2 Ana Maria Referring In Womens history of 0-201 Dorita. Provider: Bud HUBBARD, pre-term labor, 7 [address] Dorita PO Box second tri [place], Ana Maria L, 1522, [place], [address] [place], [place], [place], [place], [id number] [place], , , [place]. [place], [place] tel: [phone]. tel: [phone] tel: [phone] Hong [place] Suprvsn of preg w Milan-0 Rivera Referring In Womens poor reprodctv or 8-201 Aide. Provider: Health HAYDEE, obstet hx, second 7 700 Aide Rivera PO Box tri18 weeks Medical K, 700 1522, [facility], pregnancyFaterri hx , [facility] Dr TATUM, of congen 120, Tyrel 120, [id number], malform, [place], [place], [place] deformations and [place], [place], tel: chromsoml abnlt [phone]. , [place]. tel: tel: [phone] Hong [place] 18 weeks Milan-0 Rivera In Womens Ultrasound gestation of 8-201 Aide. Health HAYDEE, pregnancyFam hx 7 700 PO Box of [facility] Medical 1522, malform, [facility], deformations and Tyrel Mitchell, chromsoml 120, [id number], abnltAbnormal [place], hematolog finding [place], tel: on [phone] screening of , [place]. motherPreg care tel: for patient w [phone] recur preg loss, second trimester Associates Mike Spotting May-2 Farshad In Womens complicating 3-201 Tad. 700 Health PA, , second 7 Medical PO Box [id number] weeks Center 1522, gestation of Tyrel Mitchell, 120, [place], [place], [id number], [place], [place] [id number] tel: , [place]. tel: [phone] Hong [place] Supervision of Apr-2 Rivera In Womens other high risk 0-201 Aide. Health HAYDEE, pregnancies, 7 700 PO Box first [id number] Medical 1522, weeks gestation [facility], of Tyrel Mitchell, 120, [id number], [place], [place], tel: [phone] , [place]. tel: [phone] Associates Mike Suprvsn of preg w Apr-2 Rivera In Womens Ultrasound poor reprodctv or 0-201 Aide. Health HAYDEE, obstet hx, first 7 700 PO Box triSupervision of Medical 1522, other high risk [facility] [place], pregnancies, Tyrel Mitchell, first 120, [id number], trimesterHemorrha Mike, ge in early [place], tel: , [id number] , [place]. weeks gestation tel: of [phone] Associates Mike Hemorrhage in Apr-0 Fleming In Womens early , 6-201 Fiona. Health HAYDEE, unspecifiedPreg 7 700 PO Box care for patient Medical 1522, w recurrent preg [facility] [place], loss, first Tyrel Mitchell, trimester9 weeks 120, , gestation of [place], [place], tel: [phone] , [place]. tel: [phone] Associates Mike Suprvsn of preg w Apr-0 Rivera In Womens history of 4-201 Aide. Health HAYDEE, pre-term labor, 7 700 PO Box first Medical 1522, trimesterSupervis [facility], ion of other high Tyrel Mitchell, risk pregnancies, 120, , first [place], trimesterPreg [place], tel: care for patient w recurrent preg , [place]. loss, first tel: trimesterPap [phone] Smear Screening, Cervix9 weeks gestation of Associates Mike Irregular Menses Aug- Rivera In Womens 0-201 Aide. Bud HUBBARD, 6 700 PO Box Medical 1522, [place] [address] [place], 120, , Mike [place], tel:[phone] , [place]. tel: [phone] Hong [place] Nov-0 Rivera In Womens 7-201 Aide. Health HAYDEE, 3 700 PO Box Medical 1522, [place] [address] [place], 120, [id number], Mike [place], tel:[phone] , . tel:[phone] Family History Family Member Diagnosis Age At [...] [employer] [place] [id number] [place] [place] Medicaid MC [id number] Social History Type Description Quantity Date Captured [...] Heather Ca BOOKED Future Order: Radiology Order Ultrasound OB Follow-up ([id number]) Ordered Future Order: Radiology Order Nuchal Translucency ([id number]) Ordered Future Order: Radiology Order Biophysical Profile without NST Ordered ([id number]) Future Order: Radiology Order OB Detailed Complete Ultrasound Ordered ([id number]) Future Order: Radiology Order Ultrasound, OB Limited ([id number]) Ordered Date Type Problem Goal Intervention Status [...]
--- OUTSIDE RECORDS SUMMARY | 2017-03-07 10:18 | External Medical Summary | Continuity of Care Document ---
:1987 Author Organization [email or web address] Address [address] [place], [place] [phone] Phone Allergies, Adverse Reactions, Alerts Substance Reaction [...] Effective Dates (start - stop) Clinical Status 24 weeks gestation of - Fam hx [...] - and chromsoml abnlt Procedures Procedure Date Ultrasnd exam, preg uterus, limited Echo exam of heart Doppler color flow mapping Results Test Name Date and Time Measure Units Reference Range Abnormal Flag Comments Unknown Advance Directives Directive Yes / No Effective Date File Name Unknown Encounters Encounter Practice Location Reason(s) Diagnoses Date Provider Care Team Description For Visit Members [facility] Suprvsn of preg w Rivera Referring In Womens history of 2-201 Aide. Provider: Bud HUBBARD, pre-term labor, 7 700 Aide Rivera PO Box second [facility] Medical K, 700 1522, [place] [address], [facility] Dr TATUM, 120, Tyrel 120, [id number], Mike [place], [place] TATUM, tel:[phone] [id number]. [id number] , [place]. tel:+ tel: [phone] Associates Mike Nov-2 Rivera In Womens 7-201 Aide. Health HAYDEE, 7 700 PO Box Medical 1522, [place], Tyrel Mitchell, 120, [id number], [place], [place], tel: [phone] , [place]. tel: [phone] [facility] Suprvsn of preg w Nov- Hild Referring In Womens history of 1-201 Eve. Provider: Health HAYDEE, pre-term labor, 7 [address] Hild PO Box second tri Luis, A, [address], [place], [place], [place], [place], [place], [id number] [place], , , [place]. [id number]. [place] tel: tel: tel: [phone] Associates Mike Suprvsn of preg w Nov- Sobbing In Womens history of - Festus. Health PA, pre-term labor, 7 700 PO Box second triSuprvsn Medical 1522, of preg w poor [facility], reprodctv or Drive, [place], obstet hx, second Suite , triSupervision of 120, [place] other high risk [place], tel: [place], second [address], trimesterFam hx [place]. of congen tel: malform, [phone] deformations and chromsoml abnlt Associates Mike 24 weeks Rivera In Womens Ultrasound gestation of 7- Aide. Health PA, pregnancyFam hx 7 700 PO Box of congen Medical 1522, malform, [facility], deformations and Tyrel Mitchell, chromsoml abnlt 120, , [place], [place], tel:[phone] , [place]. tel: [phone] [facility] Suprvsn of preg w Nov- Hild Referring In Womens history of 4-201 Eve. Provider: Health HAYDEE, pre-term labor, 7 [address] Hild PO Box second tri [place], A, [address], [place], [place], [place], [place], [place], [place], [id number] [place], , , [place]. [id number]. [place] tel: tel: tel: [phone] Associates JULIANA Mota Suprvsn of preg w Rio-0 Hild Referring In Womens history of 7-201 Eve. Provider: Bud HUBBARD, pre-term labor, 7 [address] Hild PO Box second tri [place], A, [address], [place], [place], [place], [place], [place], [place], [id number] [place], , , [place]. [id number]. [place] tel: tel: tel: [phone] Associates JULIANA Mota Suprvsn of preg w Milan-2 Ana Maria Referring In Womens history of 0-201 Dorita. Provider: Bud HUBBARD, pre-term labor, 7 [address] Dorita PO Box second tri Ana Maria Smith L, 1522, [place], [address] [place], [place], [place], [id number] [place], , , [place]. [place], [place] tel: [phone]. tel: [phone] tel: [phone] Hong Beanvsn of preg w Milan-0 Rivera Referring In Womens poor reprodctv or 8-201 Aide. Provider: Bud HUBBARD, obstet hx, second 7 700 Aide Rivera PO Box tri18 weeks Medical K, 700 1522, gestation of [facility] [place], pregnancyFam hx , [place] [address] Dr TATUM, of congen 120, Tyrel 120, [id number], malform, Mike [place], [place] deformations and [place] TATUM, tel: chromsoml abnlt [phone]. , [place]. tel: tel: [phone] Hong [place] Preg care for Milan-0 Rivera In Womens Ultrasound patient w recur 8-201 Aide. Health PA, preg loss, second 7 700 PO Box trimesterAbnormal Medical 1522, hematolog finding Center [place], on Tyrel Mitchell, screening of 120, [id number], [email or web address] weeks [place], [place] gestation of [place], tel: pregnancyFam hx of congen , [place]. malform, tel: deformations and [id number] chromsoml abnlt Associates Mike Spotting May-2 Farshad In Womens complicating 3-201 Tad. 700 Health PA, , second 7 Medical PO Box [id number] weeks Center 1522, gestation of Tyrel Mitchell, 120, [place], [place], [id number], [place], [place] tel: , [place]. tel: [phone] Hong [place] Supervision of Apr-2 Rivera In Womens other high risk 0-201 Aide. Health PA, pregnancies, 7 700 PO Box first [email or web address] Medical 1522, weeks gestation Center [place], of Tyrel Mitchell, 120, [id number], [place], [place], tel:[phone] , [place]. tel: [phone] Hong [place] Suprvsn of preg w Apr-2 Rivera In Womens Ultrasound poor reprodctv or 0-201 Aide. Health HAYDEE, obstet hx, first 7 700 PO Box triSupervision of Medical 1522, other high risk [place], pregnancies, Tyrel Mitchell, first 120, [id number], trimesterHemorrha [place], [place] ge in early [place], tel: , [phone] [email or web address] , [place]. weeks gestation tel: of [phone] Hong [place] Hemorrhage in Apr-0 Fleming In Womens early , 6-201 Fiona. Health PA, unspecifiedPreg 7 700 PO Box care for patient Medical 1522, w recurrent preg Center [place], loss, first Tyrel Mitchell, trimester9 weeks 120, [id number], gestation of [place], [place], tel:[phone] , [place]. tel: [phone] Hong [place] Suprvsn of preg w Apr-0 Rivera In Womens history of 4-201 Aide. Health PA, pre-term labor, 7 700 PO Box first Medical 1522, trimesterSupervis Center [place], ion of other high , Tryel TATUM, risk pregnancies, 120, [id number], first [place], trimesterPreg [place], tel:+2 care for patient [phone] w recurrent preg , [place]. loss, first tel: trimester9 weeks [phone] gestation of pregnancyPap Smear Screening, Cervix Associates Mike Irregular Menses Rivera In Womens 0-201 Aide. Health PA, 6 700 PO Box Medical 1522, [place] Dr Millie, Tyrel TATUM, 120, , [facility] [place], tel:+ [phone] , [place]. tel: [phone] Associates Mike Mar- Rivera In Womens 7-201 Aide. Health PA, 3 700 PO Box Medical 1522, [place] [address] [place], 120, , [facility] [place], tel: [phone] , [place]. tel: [phone] Family History Family Member Diagnosis Age At [...] [employer] [place] - Medicaid MC [id number] Social History Type Description Quantity Date Captured [...] Heather Ca BOOKED Future Order: Radiology Order Ultrasound, OB Limited ([id number]) Ordered Future Order: Radiology Order Nuchal Translucency ([id number]) Ordered Future Order: Radiology Order OB Detailed Complete Ultrasound Ordered ([id number]) Date Type Problem Goal Intervention Status Start [...]
--- OUTSIDE RECORDS SUMMARY | 2017-03-07 10:18 | External Medical Summary | Continuity of Care Document ---
:1985 Author Organization [facility] Address [address] [place], [place] [id number] Phone Allergies, Adverse Reactions, Alerts Substance Reaction Severity Status No Known Drug Allergies Unknown Active Medications Medication Instructions Dosage Effective Dates Status Comments (start - stop) Del[place]on 250 mg/mL (1 inject 1 milliliter 250 [...] history of pre-term - labor, second tri Spotting complicating , - second trimester 16 [...] chromsoml abnlt 24 weeks gestation of - Fam hx [...] w Rivera Referring In Womens history of 8-201 Aide. Provider: Health PA, pre-term labor, 7 700 Aide Rivera PO Box third Medical K, 700 1522, trimesterSuprvsn [facility] [place], of preg w poor Dr, [facility] Dr TATUM, reprodctv or 120, Tyrel 120, [id number], obstet hx, third Mike Biddle, triSupervision of [place], [place], tel: other high risk [phone]. pregnancies, , [place]. tel: third tel: [phone] weeks gestation [phone] of Associates Mike Suprvsn of preg w Dec- Rivera Referring In Womens history of 1-201 Aide. Provider: Bud HUBBARD, pre-term labor, 7 700 Aide Rivera PO Box third trimester Medical K, 700 1522, [place] [address], [facility] Dr TATUM, 120, Tyrel 120, , Mike Biddle, [place], [place], tel: [phone]. , [place]. tel: tel: [phone] Associates Mike Suprvsn of preg w Dec-0 Rivera Referring In Womens history of 2-201 Aide. Provider: Bud HUBBARD, pre-term labor, 7 700 Aide Rivera PO Box second [facility] Medical , 700 1522, [place] [address], [facility] Dr TATUM, 120, Tyrel 120, , Mike Biddle, [place], [place], tel: [phone]. , [place]. tel: tel: [phone] Associates Mike Nov- Rivera In Womens 7-201 Aide. Health HAYDEE, 7 700 PO Box Medical 1522, [place] Dr Millie, [facility] [place], 120, [id number], [facility], tel: [phone] , [place]. tel: [phone] Associates JULIANA Mota Suprvsn of preg w Nov-2 Hild Referring In Womens history of 1-201 Eve. Provider: Health HAYDEE, pre-term labor, 7 2 E Eve Hild PO Box second [facility] Rajendra Smith, [address], [place], [place], [place], [place], [id number] [place], , , [place]. [id number]. [place] tel: tel: tel: [phone] Associates Mike Suprvsn of preg w Nov-1 Sobbing In Womens history of 7-201 Festus. Health PA, pre-term labor, 7 700 PO Box second triSuprvsn Medical 1522, of preg w poor Center [place], reprodctv or Drive, [place], obstet hx, second [id number], triSupervision of 120, [place] other high risk [place], tel: [place], [place], second [address], trimesterFam hx [place]. of congen tel: malform, [phone] deformations and chromsoml abnlt Associates Mike 24 weeks Rivera In Womens Ultrasound gestation of 7-201 Aide. Health PA, pregnancyFam hx 7 700 PO Box of congen Medical 1522, malform, Center [place], deformations and Tyrel Micthell [place], chromsoml abnlt 120, [id number], [place], [place], tel: [phone] , [place]. tel: [phone] Associates JULIANA Hedrickn of preg w Nov-1 Hild Referring In Womens history of 4-201 Eve. Provider: Bud HUBBARD, pre-term labor, 7 [address] Eve Hild PO Box second tri Rajendra Smith, [address], [place], [place], [place], [place], [place], [place], [id number] [place], , , [place]. [id number]. [place] tel: tel: tel: [phone] Associates JULIANA Beanvsn of preg w Rio-0 Hild Referring In Womens history of 7-201 Eve. Provider: Bud HUBBARD, pre-term labor, 7 [address] Eve Hild PO Box second tri Rajendra Smith, [address], [place], [place], [place], [place], [id number] [place], , , [place]. [id number]. [place] tel: tel: tel: [phone] Associates JULIANA Mota Suprvsn of preg w Milan-2 Ana Maria Referring In Womens history of 0-201 Dorita. Provider: Bud HUBBARD, pre-term labor, 7 [address] Dorita PO Box second tri Ana Maria Smith L, 1522, [place], [address] [place], [place], [place], [place], [id number] [place], , , [place]. [place], [place] tel: [phone]. tel: [phone] tel: [phone] Associates Mike Suprvsn of preg w Milan-0 Rivera Referring In Womens poor reprodctv or 8-201 Aide. Provider: Bud HUBBARD, obstet hx, second 7 700 Aide Rivera PO Box tri18 weeks Medical K, 700 1522, gestation of [place] Chelsie Pinto, pregnancyFam hx , [facility] Dr TATUM, of congen 120, Tyrel 120, , malform, Mike, [place], [place] deformations and [place], [place], tel: chromsoml abnlt [phone]. , [place]. tel: tel: [phone] Hong [place] Preg care for Milan-0 Rivera In Womens Ultrasound patient w recur 8-201 Aide. Health HAYDEE, preg loss, second 7 700 PO Box trimesterAbnormal Medical 1522, hematolog finding Center [place], on Tyrel Mitchell, screening of 120, [id number], [email or web address] weeks [place], [place] gestation of [place], tel: pregnancyFam hx [phone] of congen , [place]. malform, tel: deformations and [phone] chromsoml abnlt Associates Mike Spotting May-2 Farshad In Womens complicating 3-201 Tad. 700 Health HAYDEE, , second 7 Medical PO Box [email or web address] weeks Center 1522, gestation of Tyrel Mitchell, 120, [place], [place], [id number], [place], [place] tel: , [place]. tel: [phone] Associates Mike Supervision of Apr-2 Rivera In Womens other high risk 0-201 Iade. Health PA, pregnancies, 7 700 PO Box first [email or web address] Medical 1522, weeks gestation Center [place], of Tyrel Mitchell, 120, [id number], [place], [place], tel: [phone] , [place]. tel: [phone] Associates Mike Suprvsn of preg w Apr-2 Rivera In Womens Ultrasound poor reprodctv or 0-201 Aide. Health PA, obstet hx, first 7 700 PO Box triSupervision of Medical 1522, other high risk Center [place], pregnancies, Tyrel Mitchell, first 120, [id number], trimesterHemorrha Mike, ge in early [place], tel: , [email or web address] , [place]. weeks gestation tel: of [phone] Associates Mike Hemorrhage in Apr-0 Fleming In Womens early , 6-201 Fiona. Health PA, unspecifiedPreg 7 700 PO Box care for patient Medical 1522, w recurrent preg Center [place], loss, first Tyrel Mitchell, trimester9 weeks 120, [id number], gestation of [place], [place], tel:[phone] , [place]. tel: [phone] Hong [place] Suprvsn of preg w Apr-0 Rivera In Womens history of 4-201 Aide. Health PA, pre-term labor, 7 700 PO Box first Medical 1522, [facility], ion of other high Tyrel Mitchell, risk pregnancies, 120, [id number], first Mike, [place] trimesterPreg [place], tel: care for patient w recurrent preg , [place]. loss, first tel: trimesterPap [phone] Smear Screening, Cervix9 weeks gestation of Associates Mike Irregular Menses Aug- Rivera In Womens 0-201 Aide. Health PA, 6 700 PO [place] Medical 15[address], [place] [address] Millie, [facility] [place], 120, [id number], [facility] [place], tel:[phone] [address] , [place]. tel: [phone] Hong [place] Nov- Rivera In Womens 7-201 Aide. Health PA, 3 700 PO Box Medical 1522, [place] [address] Millie, [place], 120, [id number], [facility] [place], tel:[phone] , [place]. tel: [phone] Family History Family Member Diagnosis Age At [...] [employer] Plan [place] - Medicaid [place] [id number] Social History Type Description Quantity Date Captured [...] Care Date Type Action Status Appointment Heather Ca- 3 HR GTT BOOKED Appointment Heather Ca BOOKED Future Order: Radiology Order Nuchal Translucency ([id number]) Ordered Future Order: Radiology Order OB Detailed Complete Ultrasound Ordered ([id number]) Future Order: Radiology Order Ultrasound, OB Limited ([id number]) Ordered Date Type Problem Goal Intervention Status [...]
--- OUTSIDE RECORDS SUMMARY | 2017-03-07 10:18 | External Medical Summary | Continuity of Care Document ---
:1987 Author Organization [facility] Address [address] [place], [place] [id number] Phone Allergies, Adverse Reactions, Alerts Substance Reaction Severity Status No Known Drug Allergies Unknown Active Medications Medication Instructions Dosage Effective Dates Status Comments (start - stop) [place] 250 mg/mL (1 inject 1 milliliter 250 [...] PO Box third trimester Medical K, 700 3252, [place] [address], [place] Dr TATUM, 120, Tyrel 120, [id number], Mike [place], [place], [place], tel:[phone] [id number] , [place]. tel: tel: [phone] Associates Mike Suprvsn of preg w Dec-0 Rivera Referring In Womens history of 2- Aide. Provider: Health PA, pre-term labor, 7 700 Aide Rivera PO Box second tri Medical K, 700 1522, [place] [address], [facility] [place], 120, Ty[place] 120, , Mike [place], [place], [place], tel: [phone]. , [place]. tel: tel: [phone] Associates Mike Nov- Rivera In Womens Aide. Health PA, 7 700 PO Box Medical 1522, [place] Dr Millie, [facility], 120, [id number], [place], [facility], tel: [phone] , [place]. tel: [phone] Associates JULIANA Mota Suprvsn of preg w Nov- Hild Referring In Womens history of - Eve. Provider: Health HAYDEE, pre-term labor, 7 [address] Eve Hild PO Box second [facility] Rajendra Smith, [address], [place] Pinto, [place], [place], [place], [id number] [place], , , [place]. [id number]. [place] tel: tel: tel: [phone] Associates Mike Suprvsn of preg w Nov- Sobbing In Womens history of Festus. Health PA, pre-term labor, 7 700 PO Box second triSuprvsn Medical 1522, of preg w poor Center [place], reprodctv or Drive, [place], obstet hx, second Suite , triSupervision of 120, [place] other high risk [place], [place]: [place], second [id number], trimesterFam hx [place]. of congen tel: malform, [phone] deformations and chromsoml abnlt Associates Mike Fam hx of congen Nov- Rivera In Womens Ultrasound malform, 7-201 Aide. Health HAYDEE, deformations and 7 700 PO Box chromsoml [email or web address] Medical 1522, weeks gestation Center [place], of [place], 120, [id number], [place], [place], tel: [phone] , [place]. tel: [phone] Associates CORBY Nakul Suprvsn of preg w Nov-1 Hild Referring In Womens history of 4-201 Eve. Provider: Bud HUBBARD, pre-term labor, 7 [address] Eve Hild PO Box second tri Luis, A, [address], [place], [place], [place], [place], [place], [place], [id number] [place], [id number], , [place]. [id number]. [place] tel: tel: tel: [phone] Associates JULIANA Mota Suprvsn of preg w Rio-0 Hild Referring In Womens history of 7-201 Eve. Provider: Bud HUBBARD, pre-term labor, 7 [address] Eve Hild PO Box second tri Rajendra Smith, [address], [place], [place], [place], [place], [place], [id number] [place], , , [place]. [id number]. [place] tel: tel: tel: [phone] Associates [facility] Nakul Suprvsn of preg w Milan-2 Ana Maria Referring In Womens history of 0-201 Dorita. Provider: Bud HUBBARD, pre-term labor, 7 [address] Dorita PO Box second tri Ana Maria Smith L, 1522, [place], [address] [place], [place], [place], [place], [id number] [place], [id number], , [place]. [place], [place] tel: [phone]. tel: [phone] tel: [phone] Hong Hedrickn of preg w Milan-0 Rivera Referring In Womens poor reprodctv or 8-201 Aide. Provider: Bud HUBBARD, obstet hx, second 7 700 Aide Rivera PO Box tri18 weeks Medical K, 700 1522, [facility], pregnancyFam hx , [facility] Dr TATUM, of congen 120, Tyrel 120, , malform, [place], [place], [place] deformations and [place], [place], tel: chromsoml abnlt [phone]. , [place]. tel: tel: [phone] Hong [place] Preg care for Milan-0 Rivera In Womens Ultrasound patient w recur 8-201 Aide. Health PA, preg loss, second 7 700 PO Box trimesterAbnormal Medical 1522, hematolog finding [facility], on Tyrel Mitchell, screening of 120, , [email or web address] weeks [place], [place] gestation of [place], tel: pregnancyFam hx [phone] of [facility] [place]. malform, tel: deformations and [phone] chromsoml abnlt Associates Mike Spotting May-2 Farshad In Womens complicating 3-201 Tad. 700 Health PA, , second 7 Medical PO Box [email or web address] weeks [place] 1522, gestation of Ty[place], 120, [place], [place], [id number], [place], [place] [id number] tel: , [place]. tel: [phone] Hong [place] Supervision of Apr-2 Rivera In Womens other high risk 0-201 Aide. Health HAYDEE, pregnancies, 7 700 PO Box first [email or web address] Medical 1522, weeks gestation [facility], of Tyrel Mitchell, 120, [id number], [place], [place], tel:[phone] , [place]. tel: [phone] Hong [place] Suprvsn of preg w Apr-2 Rivera In Womens Ultrasound poor reprodctv or 0-201 Aide. Health HAYDEE, obstet hx, first 7 700 PO Box triSupervision of Medical 1522, other high risk Center [place], pregnancies, Tyrel Mitchell, first 120, , trimesterHemorrha [place], [place] ge in early [place], tel:[phone] , [email or web address] , [place]. weeks gestation tel: of [phone] Associates Mike Hemorrhage in Aug-0 Fleming In Womens early , 6-201 Fiona. Health PA, unspecifiedPreg 7 700 PO Box care for patient Medical 1522, w recurrent preg Center [place], loss, first Tyrel Mitchell, trimester9 weeks 120, , gestation of [place], [place], tel:[phone] , [place]. tel: [phone] Associates Mike Suprvsn of preg w Aug- Rivera In Womens history of 4-201 Aide. Health HAYDEE, pre-term labor, 7 700 PO Box first Medical 1522, trimesterSupervis [place], ion of other high Tyrel Mitchell, risk pregnancies, 120, , first [place], trimesterPreg [place], tel: care for patient w recurrent preg , [place]. loss, first tel: trimester9 weeks [phone] gestation of pregnancyPap Smear Screening, Cervix Associates Mike Irregular Menses Dec- Rivera In Womens 0-201 Aide. Health HAYDEE, 6 700 PO Box Medical 1522, [place] [address] [place], 120, , [place], [place], tel: [phone] , [place]. tel: [phone] Associates Mike Nov-0 Rivera In Womens 7-201 Aide. Health HAYDEE, 3 700 PO Box Medical 1522, [place] [address] [place], 120, , [place], [place], tel: [phone] , [place]. tel: [phone] Family History Family Member Diagnosis Age At [...] Unknown Payers Payer name Insurance type Covered libertarian ID Authorization(s) [employer] Plan Of [place] - Medicaid MC [id number] Social History Type Description Quantity Date Captured [...] BOOKED Future Order: Radiology Order Nuchal Translucency ([id number]) Ordered Future Order: Radiology Order OB Detailed Complete Ultrasound Ordered ([id number]) Future Order: Radiology Order Ultrasound, OB Limited ([id number]) Ordered Date Type Problem Goal Intervention Status [...]
--- OUTSIDE RECORDS SUMMARY | 2017-03-07 10:18 | External Medical Summary | Continuity of Care Document ---
:1987 Author Organization [facility] Allergies Active Description Code Type Severity Reaction Onset Reported/ Identified Relationship Clinical to Patient Status Yes No Known 81007 3 N/A N/A Drug 0 Allergies Medications Medication Packaging Start Stop Route Dosage Sig Date Date Vial 17-alphahydroxy 4 017 1 injection Progesterone weekly IM (weeks 16-36 of ) Tablet AMOXICILLIN 7 017 take 1 tablet by oral route 3 times every day for 5 days Vial 17-alphahydroxy 7 017 1 injection Progesterone weekly IM (weeks 16-36 of ) Vial MEDROXYPROGESTERONE 7 017 PRESCRIBED ACETATE Vial SAL 7 017 inject 1 milliliter by intramuscular route every week begin between weeks 16 and 20; continue to week 37 of gestation or delivery Capsule CEPHALEXIN 7 017 take 1 capsule by oral route 4 times every day for 7 days Problems Date Dx Attending Type Code Diagnosis Diagnosed By Coded 09/12/2016 Aide Rivera O09.291 Suprvsn of preg w poor reprodctv or obstet hx, first tri 09/12/2016 Aide Rivera O09.891 Supervision of other high risk pregnancies, first trimester 09/12/2016 Aide Rivera O20.9 Hemorrhage in early , unspecified 09/12/2016 Aide Rivera3A.11 11 weeks gestation of 10/31/2016 Aide Rivera O26.22 Preg care for patient w recur preg loss, second trimester 10/31/2016 Aide Rivera O28.0 Abnormal hematolog finding on screening of mother 10/31/2016 Aide Rivera3A.18 18 weeks gestation of 10/31/2016 Aide Rivera Z82.79 Fam hx of congen malform, deformations and chromsoml abnlt 12/09/2016 Aide Rivera Z3A.24 24 weeks gestation of 12/09/2016 Aide Rivera Z82.79 Fam hx of congen malform, deformations and chromsoml abnlt 02/13/2017 Aide Rivera O09.293 Suprvsn of preg w poor reprodctv or obstet hx, third tri 02/13/2017 Aide Rivera O09.893 Supervision of other high risk pregnancies, third trimester 02/13/2017 Aide Rivera O26.23 Preg care for patient w recurrent preg loss, third trimester 02/13/2017 Aide Rivera Z3A.33 33 weeks gestation of 02/27/2017 W O09.293 Suprvsn of preg w poor reprodctv or obstet hx, third tri 02/27/2017 W O09.893 Supervision of other high risk pregnancies, third trimester 02/27/2017 W O36.8130 Decreased movements, third trimester, unsp 02/27/2017 W Z3A.35 35 weeks gestation of Procedures Code Description Performed By Performed On 09/12/2016 73882 Ultrasound, Nuchal Translucency Measurement OB 10/31/2016 53038 US, DETAILED, SNGL FETUS 12/09/2016 40802 Ultrasnd exam, preg uterus, limited Echo 12/09/2016 51848 exam of heart 12/09/2016 29730 Doppler color flow mapping 02/13/2017 19906 Ultrasnd preg uterus, flwup/repeat 02/27/2017 62844 biophys prfl w/o nstress test Results Encounters ACCT No. Visit Discharge Status Pt. Type Provider Facility Loc./Unit Complaint Date/Time [id number] 02/13/2017 02/13/2017 [facility] Outpatient Farshad, 15:45:00 23:59:59 Tad Arias [id number] 02/13/2017 02/13/2017 [facility] Outpatient Rivera, 15:15:00 23:59:59 Aide Simon [id number] 02/07/2017 02/07/2017 [facility] Outpatient Rivera, 09:05:00 23:59:59 Aide Simon [id number] 02/03/2017 02/03/2017 [facility] Outpatient Ana Maria, 10:40:00 23:59:59 Oly Ross [id number] 01/24/2017 01/24/2017 [facility] Outpatient Rivera, 08:45:00 23:59:59 Aide Smion [id number] 01/20/2017 01/20/2017 [facility] Outpatient Rivera, 08:50:00 23:59:59 Aide Simon [id number] 01/17/2017 01/17/2017 [facility] Outpatient Rivera, 08:25:00 23:59:59 Aide Simon [id number] 01/13/2017 01/13/2017 CLS Outpatient Rivera, 09:23:00 23:59:59 Aide Simon [id number] 01/10/2017 01/10/2017 CLS Outpatient Rivera, 09:50:00 23:59:59 Aide Simon [id number] 01/03/2017 01/03/2017 CLS Outpatient Rivera, 10:30:00 23:59:59 Aide Simon [id number] 12/25/2016 12/25/2016 CLS Outpatient Rivera, 11:25:00 23:59:59 Aide Simon [id number] 12/19/2016 12/19/2016 CLS Outpatient Rivera, 14:28:00 23:59:59 Aide Simon [id number] 12/13/2016 12/13/2016 CLS Outpatient Hild, 11:35:00 23:59:59 Eve Rajendra [id number] 12/09/2016 12/09/2016 [facility] Outpatient Sobbing, 10:15:00 23:59:59 Festus Ross [id number] 12/09/2016 12/09/2016 CLS Outpatient Rivera, 09:45:00 23:59:59 Aide Simon [id number] 12/06/2016 12/06/2016 CLS Outpatient Hild, 11:35:00 23:59:59 Eve Drew [id number] 11/29/2016 11/29/2016 CLS Outpatient Hild, 11:00:00 23:59:59 Eve Drew [id number] 11/12/2016 11/12/2016 CLS Outpatient Ana Maria, 08:45:00 23:59:59 Dorita Ross [id number] 11/07/2016 11/07/2016 [facility] Outpatient Rivera, 08:34:00 23:59:59 Aide Simon [id number] 11/05/2016 11/05/2016 CLS Outpatient Rivera, 09:09:00 23:59:59 Aide Simon [id number] 11/04/2016 11/04/2016 CLS Outpatient Rivera, 13:18:00 23:59:59 Aide Simon [id number] 10/31/2016 10/31/2016 CLS Outpatient Rivera, 11:30:00 23:59:59 Aide Simon [id number] 10/31/2016 10/31/2016 CLS Outpatient Rivera, 11:15:00 23:59:59 Aide Simon [id number] 2016 2016 CLS Outpatient Farshad, 13:45:00 23:59:59 Tad Juana [id number] 10/08/2016 10/08/2016 CLS Outpatient Rivera, 14:13:00 23:59:59 Aide Simon [id number] 10/04/2016 10/04/2016 CLS Outpatient Rivera, 15:03:00 23:59:59 Aide Simon [id number] 09/25/2016 09/25/2016 CLS Outpatient Hedrick, 09:43:00 23:59:59 Urbano Brenda [id number] 09/12/2016 09/12/2016 CLS Outpatient Rivera, 09:50:00 23:59:59 Aide Simon [id number] 09/12/2016 09/12/2016 CLS Outpatient Rivera, 09:15:00 23:59:59 Aide Simon [id number] 08/29/2016 08/29/2016 CLS Outpatient Fleming, 14:15:00 23:59:59 Fiona Han [id number] 08/29/2016 08/29/2016 CLS Outpatient Rivera, 09:17:00 23:59:59 Aide Simon [id number] 08/27/2016 08/27/2016 CLS Outpatient Rivera, 10:15:00 23:59:59 Aide Simon [id number] 02/22/2016 02/22/2016 CLS Outpatient Rivera, 10:22:00 23:59:59 Aide Simon [id number] 01/03/2016 01/03/2016 CLS Outpatient Rivera, 11:33:00 23:59:59 Aide Simon [id number] 12/29/2015 12/29/2015 CLS Outpatient Rivera, 14:59:00 23:59:59 Aide Simon [id number] 02/27/2017 Document 10:15:00 Registration [id number] 02/27/2017 Document 08:45:00 Registration [id number] 08/27/2016 Document 10:18:22 Registration
[2017-03-07] MEDS ORDERED: SALINE FLUSH 10ml SYRINGE IV PRN (10:35)
[2017-03-07] MEDS ORDERED: LIDOCAINE 1% (10mg/ml) 2mL INJ PF SDV ID PRN (10:35)
[2017-03-07] MEDS ORDERED: ACETAMINOPHEN 500 MG TABLET PO PRN (12:48)
--- NOTE | 2017-03-07 12:50 | Labor and Delivery Triage Note ---
L&D Triage/Final Diagnosis - Visit Information Date of evaluation: 03/07/17 Comments/Additional reasons for admission: at 37w0d sent over from the office for elevated BPs. She has a mild ROGERS that comes and goes, but not currently. No scotomata/RUQ pain. Good FM. : 6 Para: 231 - Evaluation Baseline heart rate: 140 Variability: Moderate (5-25) monitor accelerations: Present monitor decelerations: None Crown: Occasional. Laboratory results: Laboratory Results - last 24 hr 03/07/17 03/07/17 10:57 10:57 WBC 10.3 RBC 3.88 L Hgb 11.7 L Hct 35.6 L MCV 91.8 MCH 30.2 MCHC 32.9 RDW Std Deviation 44.6 Plt Count 224 MPV 10.6 Turbidity < 20 Sodium 141 Potassium 4.1 Chloride 110 H Carbon Dioxide 21 L Anion Gap 10 BUN 6.0 L Creatinine 0.6 L GFR Calculation 118 BUN/Creatinine Ratio 10 Glucose 88 Calculated Osmolality 268 Calcium 9.1 Total Bilirubin 0.20 Icterus Index < 2 AST 19 ALT 28 Alkaline Phosphatase 148 H Total Protein 7.5 Albumin 3.8 Globulin 3.7 H Albumin/Globulin Ratio 1.0 L Specimen Hemolysis < 15 - Final Diagnosis (1) 37 weeks gestation of Current Visit: Yes Status: Acute (2) Gestational hypertension affecting sixth Current Visit: Yes Status: Acute - Plan Comments: Labs are all normal. Half of her blood pressures have been elevated since admission. 24 hour urine is in progress. We discussed timing of delivery. Logistically, her significant other is working in [place] and needs time to get here. Also, 2 of our 3 labor rooms have labors going , and we try to avoid having all our labor rooms occupied. Her BPs have been better since here resting. She doesn't have any severe Sx. At this point, we will plan to start her induction tomorrow. I will discuss with Dr. 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 Q&A.
[2017-03-07 15:31] VITALS: BMI 46.3
[2017-03-07] MEDS ORDERED: ZOLPIDEM 10 MG TABLET PO ONE (21:00)
[2017-03-08] MEDS ORDERED: OXYTOCIN DRIP 30 UNIT/500 ML ML IV PRN (04:00)
--- NOTE | 2017-03-08 08:07 | Labor and Delivery Note ---
- Labor and Delivery Labor and Delivery: Delay in starting induction due to other active labors in MCU. Pt reports feeling well. AVSS Will start oxytocin soon, consider Persaud bulb. Q&A
[2017-03-08] MEDS: D5LR 1,000 ML IV PRN ×2 (08:54→22:44)
[2017-03-08] MEDS ORDERED: LR 1,000 ML IV SCH (09:00)
[2017-03-08] MEDS ORDERED: MEASLES-MUMPS-RUBELLA VACCINE 0.5ml INJECTION SUB-Q ONE (13:00)
[2017-03-08] MEDS ORDERED: VARICELLA LIVE VACCINE 0.5 ML VIAL SQ ONE (13:00)
[2017-03-08] MEDS ORDERED: DiphenhydrAMINE 50 MG/ML INJECTION IVP PRN (14:23)
[2017-03-08] MEDS ORDERED: ONDANSETRON 4 MG/2 ML INJECTION IVP PRN (14:23)
[2017-03-08] MEDS ORDERED: ROPIVACAINE 1% 10MG/ML INJ 200 MG, SUFentanil 50 MCG in NS 100 ML EPI PRN (14:23)
[2017-03-08] MEDS ORDERED: NALOXONE 0.4 MG/ML INJECTION IVP PRN (14:23)
--- NOTE | 2017-03-08 14:23 | Anesthesia Preoperative Report ---
Anesthesia Epidural/Spinal Rec - Date and Time Date: 03/08/17 Procedure: Labor Epidural Plan: Epidural - Vital Signs Vital Signs: Temperature 97.7 F 03/08/17 03:47 Pulse Rate 95 03/08/17 03:47 Respiratory Rate 13 03/08/17 03:47 Blood Pressure 132/76 03/08/17 03:47 /Para: P:2 - Medictaions & Allergies Inpatient Medications: Current Medications Acetaminophen (Tylenol) 1,000 mg PO Q5H PRN PRN Reason: Discomfort Last Admin: 03/07/17 21:12 Dose: 1,000 mg Oxytocin (Pitocin Drip) 30 unit in 500 mls @ 2 mls/hr IV .Q24H PRN; Protocol PRN Reason: Induction/Augmentation Last Admin: 03/08/17 08:55 Dose: 2 mls/hr Dextrose/Lactated Ringer's (Dextrose 5%-Lactated Ringers) 1,000 mls @ 125 mls/ hr IV .Q8H PRN PRN Reason: Labor Last Admin: 03/08/17 08:54 Dose: 125 mls/hr Lactated Ringer's (Lactated Ringers) 1,000 mls @ 100 mls/hr IV .Q10H RAJNI Last Admin: 03/08/17 08:54 Dose: 100 mls/hr Lidocaine HCl (Xylocaine-Mpf 1% Vial) 2 mg ID PRN PRN PRN Reason: IV Sodium Chloride (Iv Flush) 10 - 80 ml IV PRN PRN PRN Reason: Flushing Last Admin: 03/08/17 04:10 Dose: 10 ml Allergies/Adverse Reactions: Allergies Allergy/AdvReac Type Severity Reaction Status Date / Time No Known Allergies Allergy Verified 03/07/17 15:55 - Home Medications Home Medications: Home Medications Medication Instructions Recorded Confirmed Type Vits W-Ca,Fe,Fa(<1MG) 1 tab PO DAILY #0 tab 08/25/13 03/07/17 History () - Medical History Cardiovascular: Reports: Hypertension (mild pre-eclampsia this ) Gastrointestional: Reports: Gastroesophageal Reflux Disease (with ), Morbid Obesity Other History: Reports: Now - Surgical History Anesthesia Reactions: None Hx Family Anesthesia Reaction: No History of Motion Sickness: No - Social History Smoking Status: Never smoker Substance Use Type: does not use - Pertinent Findings Lab Data: CBC and BMP 03/07/17 10:57 03/07/17 10:57 BMP 03/07/17 09:00 Creatinine 0.6 L Urine 03/07/17 Range/Units 09:00 Urine Protein 17 MG/DL EKG Rhythm: Normal Sinus Rhythm - Physical Exam Respiratory Exam: lungs clear, bilateral breath sounds equal Cardiovascular Exam: regular rate and rhythm, no murmur - Airway Assessment Mallampati Score: II TMD: 2 Fingerbreadths Neck Extension: good Overall Assessment: may be difficult intubation - ASA ASA Score: 2 - Discussion Discussion: Discussed risks/options/alternatives of anesthesia and questions answered. Patient consents. Nursing pain assessment noted. Anesthesia Discussion: family member (multiple) Attestation Statement: Prior to the delivery of any anesthetic medication, I examined the patient, developed the plan, obtained the patient's consent and discussed the risk and benefits of the procedure with the patient/guardian.
--- NOTE | 2017-03-08 21:27 | Labor and Delivery Note ---
- Labor and Delivery Labor and Delivery: Cervix 3/80%/-3, FHTs Cat 1, oxytocin at 30 u/hr IUPM placed without difficulty, pt comfortable Cont to monitor
[2017-03-09] MEDS ORDERED: ACETAMINOPHEN 500 MG TABLET PO PRN (01:05)
[2017-03-09] MEDS ORDERED: DiphenhydrAMINE 25 MG CAPSULE PO PRN (01:05)
[2017-03-09] MEDS ORDERED: HYDROCORTISONE 2.5% CREAM 30gm RECTALLY PRN (01:05)
[2017-03-09] MEDS ORDERED: OXYTOCIN DRIP 30 UNIT/500 ML ML IV SCH (01:05)
[2017-03-09] MEDS ORDERED: SALINE FLUSH 10ml SYRINGE IV PRN (01:05)
[2017-03-09] MEDS ORDERED: CALCIUM CARBONATE Chewable 500mg TABLET PO PRN (01:05)
[2017-03-09] MEDS ORDERED: MAG-AL + SIM ORAL LIQUID 30ml PO PRN (01:05)
[2017-03-09] MEDS: IBUPROFEN 800 MG TABLET PO PRN ×3 (02:36→19:47)
[2017-03-09 04:38] VITALS: O2SAT 99
[2017-03-09] MEDS: HYDROCODONE/APAP 5mg/325mg TABLET PO PRN ×3 (05:50→22:35)
[2017-03-09] MEDS: DOCUSATE CALCIUM 240 MG CAPSULE PO SCH (08:45)
[2017-03-09] MEDS: PRENATAL VITAMIN TABLET PO SCH (08:46)
[2017-03-09 12:47] VITALS: RESP 16
--- NOTE | 2017-03-09 13:09 | OB/GYN Progress Note ---
OB-PP Progress Note - General PPD1 Maternal blood type: A+ Maternal Rubella Status: Not Immune - Subjective Date: 03/09/17 Lochia: Minimal Pain: low back pain Voiding: voiding Nausea or Vomiting Present: No - Objective Vital Signs: Last Vital Signs Temp 97.8 F 03/09/17 08:10 Pulse 86 03/09/17 08:10 Resp 16 03/09/17 08:10 BP 130/80 03/09/17 08:10 Pulse Ox 99 03/09/17 03:35 Urine Output: good General: alert and oriented Abdomen: fundus firm, non-tender Side: bilateral Site: leg, ankle, foot Edema Degree: 1+ Laboratory: Laboratory Results - last 24 hr 03/09/17 07:32 WBC 12.8 H RBC 3.61 L Hgb 10.9 L Hct 33.3 L MCV 92.2 MCH 30.2 MCHC 32.7 RDW Std Deviation 43.7 Plt Count 188 MPV 10.5 - Assessment (1) Gestational hypertension affecting sixth Status: Acute (2) 37 weeks gestation of Comment: Repeat CBC stable Status: Acute - Assessment Assessment: SP, - Plan Plan: routine care, immunizations Expected date of discharge: 03/10/17 Encouraged heat to low back, pain meds prn.
--- NOTE | 2017-03-09 18:34 | Anesthesia Postoperative Note ---
- Date and Time Date: 03/09/17 Time: 18:34 - Status Patient Participated in Evaluation: Patient Participated in Person Vital Signs: Temperature 97.6 F 03/09/17 16:00 Pulse Rate 89 03/09/17 16:00 Respiratory Rate 16 03/09/17 16:00 Blood Pressure 135/68 03/09/17 16:00 Pulse Oximetry 99 03/09/17 03:35 Respiratory Function: Airway Patent Cardiovascular Function: Regular Pulse EKG: Sinus Rhythm Hydration: Taking PO Fluids Complications During Recover: None Apparent - Follow-Up Instructions Instructions: Per Surgeon
[2017-03-10] MEDS: IBUPROFEN 800 MG TABLET PO PRN ×2 (05:23→14:48)
--- NOTE | 2017-03-10 08:14 | Discharge Instructions ---
Discharge Plan - Med Rec/Dispo Prescriptions: New Ibuprofen [Motrin] 800 mg PO Q8H PRN #30 tab PRN Reason: Pain Docusate Calcium [Surfak] 240 mg PO DAILY #30 cap Hydrocodone/APAP 5/325 [[place] 5/325] 1 - 2 tab PO Q4H PRN #20 tab PRN Reason: Pain No Action Vits W-Ca,Fe,Fa(<1MG) () 1 tab PO DAILY #0 tab - Disposition 01 Discharged Home, Self-Care
--- NOTE | 2017-03-10 08:21 | OB/GYN Progress Note ---
OB-PP Progress Note - General PPD2 Maternal Group B Strep: Negative Maternal blood type: A+ Maternal Rubella Status: Not Immune - Subjective Date: 03/10/17 Lochia: Moderate Pain: contolled Pain: Low back pain- mild Voiding: voiding Nausea or Vomiting Present: No - Objective Vital Signs: Last Vital Signs Temp 98.2 F 03/10/17 00:00 Pulse 102 H 03/10/17 00:00 Resp 16 03/09/17 16:00 BP 128/87 03/10/17 00:00 Pulse Ox 99 03/09/17 03:35 Urine Output: good General: alert and oriented Abdomen: fundus firm Extremities: non-tender Side: bilateral Site: ankle, foot Edema Degree: 1+ - Assessment (1) 37 weeks gestation of Comment: Repeat CBC stable Status: Acute (2) Gestational hypertension affecting sixth Status: Acute - Assessment Assessment: SP, , Gestational HTN - Plan Plan: discharge home Expected date of discharge: 03/10/17 Discharge to [facility]
[2017-03-10 08:33] VITALS: BP 124/70; PULSE 81; TEMP 97.7
[2017-03-10] MEDS ORDERED: VARICELLA LIVE VACCINE 0.5 ML VIAL SQ ONE (09:00)
[2017-03-10] MEDS ORDERED: MEASLES-MUMPS-RUBELLA VACCINE 0.5ml INJECTION SUB-Q ONE (09:00)
[2017-03-10] MEDS: HYDROCODONE/APAP 5mg/325mg TABLET PO PRN (09:43)
--- NOTE | 2017-03-10 10:22 | Labor and Delivery Note ---
DATE 03/08/2017 This is a patient of Dr. Rivera. Mrs. Ca progressed very well in first stage of labor. She progressed rapidly from 3 cm to delivery in less than two hours. She pushed with excellent effort beginning at the complete and +2 presentation. She pushed for only about three contractions delivering the head in the OA presentation. There was a loose nuchal cord x1 that was reduced. Baby was bulb suctioned on the perineum. With one further push, baby was delivered in total. Baby was then further bulb suctioned and placed on mother's abdomen. After about three minutes, the cord was doubly clamped. It was cut by the baby's father, Martin. This is a liveborn male with Apgars of 8/8, weighing 3114 grams. After a few moments, the placenta delivered spontaneously , intact. It had a normal configuration and a normal-appearing three-vessel cord. Perineum was intact. There was some brisk bleeding initially that was relieved by Pitocin bolus and fundal massage. Total blood loss was approximately 500 mL. At the time of this dictation, mother and baby are doing well. JOSEPH
[2017-03-10] MEDS: DOCUSATE CALCIUM 240 MG CAPSULE PO SCH (14:48)
[2017-03-10] MEDS: PRENATAL VITAMIN TABLET PO SCH (15:17)
== END 2017-03-10 16:00 | disposition home or self-care (01) | DRG 774 ==
LOC: OBOBS 10:09 → MC 10:09
PROVIDERS: ADMIT Obstetrics & Gynecology; ATTEND Obstetrics & Gynecology